=== PATIENT | male | born 1960 | race Caucasian/White ===

== ENCOUNTER 2022-04-16 00:45 | Inpatient (IN) ==
[2022-04-16] MEDS ORDERED: HYDROmorphone INJ 1 MG/ML SYRINGE IV STA (01:29)
[2022-04-16 01:56] LABS: Basophils # (auto) 0.03 K/uL (0-0.2); Basophils % (auto) 0.3 %; Eosinophils # (auto) 0.04 K/uL (0-0.50); Eosinophils % (auto) 0.4 %; Hematocrit (blood only) 50.8 % (40.1-51.0); Hemoglobin 17.7 g/dl (14.0-18.0); Immature Granulocytes # (auto) 0.04 K/uL (0.00-0.02); Immature Granulocytes % (auto) 0.4 %; Lymphocytes # (auto) 2.75 K/uL (1.2-3.4); Lymphocytes % (auto) 25.7 %; Mean Corpuscular Hemoglobin 31.9 pg (25.0-34.0); Mean Corpuscular Hgb Conc 34.8 g/dL (32.0-36.0); Mean Corpuscular Volume 91.5 fL (80.0-100.0); Monocytes # (auto) 0.77 K/uL (0.24-0.82); Monocytes % (auto) 7.2 %; Neutrophils # (auto) 7.06 K/uL (1.4-6.5); Platelet Count 248 K/uL (130-400); RDW Coefficient of Variation 11.8 % (11.5-14.5); RDW Standard Deviation 39.4 fL (36.4-46.3); Red Blood Count 5.55 M/uL (4.63-6.08); White Blood Count 10.69 K/ul (4.8-10.8)
--- NOTE | 2022-04-16 02:00 | Emergency Department Note ---
History of Present Illness General Chief complaint: Back Injury/Pain Stated complaint: HERNIATED DISK L4-L5 LOWER BACK AND LEFT LEG PAIN Time Seen by Provider: 04/16/22 01:09 History of Present Illness Maximum Pain Intensity: 7 This is a 61-year-old male presenting to the emergency department for evaluation of lower back pain and left leg pain for the past several weeks. He rates the d Rivalfox a 02/25. The patient was seen in this facility a few days ago for this complaint where he had MRI performed that did show disc herniation in the lumbar spine. He was evaluated in the ER by Dr. Barger, who was arranging outpatient care. The patient states that his pain is severe again and so he turned to the ER. He did take oxycodone at home which did not help his symptoms. He has not had fevers or chills. Home Medications Medication Instructions Recorded Confirmed Type aspirin 81 mg tablet,delayed 81 mg PO UD 12/26/21 04/16/22 History release cholecalciferol (vitamin D3) 25 25 mcg PO HS 12/26/21 04/16/22 History mcg (1,000 unit) chewable tablet (Vitamin D3) clopidogrel 75 mg tablet (Plavix) 75 mg PO UD 12/26/21 04/16/22 History fexofenadine 180 mg tablet 180 mg PO DAILY PRN SEASONAL 12/26/21 04/16/22 History ALLERGIES fluticasone propionate 50 1 spray intranasal DAILY PRN 12/26/21 04/16/22 History mcg/actuation nasal SEASONAL ALLERGIES spray,suspension (Flonase Allergy Relief) glipizide 2.5 mg tablet, extended 5 mg PO QAM 12/26/21 04/16/22 History release 24 hr hydralazine 25 mg tablet 25 mg PO BID 12/26/21 04/16/22 History hydrochlorothiazide 12.5 mg capsule 12.5 mg PO QAM 12/26/21 04/16/22 History hydrocortisone 2.5 % topical cream 1 applic topical UD PRN PSORIASIS 12/26/21 04/16/22 History magnesium oxide 500 mg capsule 500 mg PO HS 12/26/21 04/16/22 History metoprolol succinate 25 mg 12.5 mg PO QAM 12/26/21 04/16/22 History tablet,extended release 24 hr yuqhtthh-hkt-oeiqt acid 300 1 tab PO QAM 12/26/21 04/16/22 History mcg-lycopene 600 mcg-lutein 300 mcg tablet (Centrum Silver Men) pantoprazole 40 mg tablet,delayed 40 mg PO QAM 12/26/21 04/16/22 History release risperidone 0.5 mg tablet 0.5 mg PO HS 12/26/21 04/16/22 History rosuvastatin 40 mg tablet 40 mg PO QAM 12/26/21 04/16/22 History flash glucose scanning reader 02/21/22 04/16/22 History (FreeStyle Nunu 2 Drury) metformin 500 mg tablet,extended 1,000 mg PO BID 02/21/22 04/16/22 History release 24 hr nitroglycerin 0.4 mg sublingual 0.4 mg sublingual Q5M PRN Chest 02/21/22 04/16/22 History tablet Pain ropinirole 0.5 mg tablet 1.5 mg PO HS 02/21/22 04/16/22 History cyclobenzaprine 10 mg tablet 10 mg PO TID PRN muscle spasm #60 04/09/22 04/16/22 Rx tabs methylprednisolone 4 mg tablet See Rx Instructions .Route 04/09/22 04/16/22 Rx (Medrol) .COMPLEX #18 tabs oxycodone 5 mg tablet 5 mg PO Q6H PRN pain #60 tabs 04/09/22 04/16/22 Rx ramipril 10 mg capsule 10 mg PO BID 04/16/22 04/16/22 History Allergies Allergy/AdvReac Type Severity Reaction Status Date / Time amlodipine Allergy Unknown EDEMA, Verified 04/16/22 02:30 COLDNESS bupropion Allergy Unknown CHEST PAIN Verified 04/16/22 02:30 duloxetine Allergy Unknown PT DOESN'T Verified 04/16/22 02:30 KNOW mirtazapine Allergy Unknown Abdominal Verified 04/16/22 02:30 Pain, ? FURTHER DETAILS ON REACTION - PT NOT SURE tramadol Allergy Unknown INTERFERED Verified 04/16/22 02:30 WITH OTHER MEDICATIONS, PT NOT SURE REACTION atorvastatin AdvReac Unknown MYALGIA Verified 04/16/22 02:30 isosorbide AdvReac Unknown MIGRAINE Verified 04/16/22 02:30 pravastatin AdvReac Unknown MYALGIA Verified 04/16/22 02:30 simvastatin AdvReac Unknown MYALGIA Verified 04/16/22 02:30 Past Med/Surg History Medical History Anxiety Aortic root enlargement 4.4 cm 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 Bipolar disorder CAD (coronary artery disease) NSTEMI 2003-04/11/2004 cath s/p PTCA and stenting of LAD with non drug eluting stent and CHRISTEL to LCx, residual 50-60% stenosis ramus-05/2004 cath patent stents and mild luminal irregularities-08/2019 cath 30% in stent restenoses of proximal LAD, 40% stenosis LAD and 30% stenosis small ramus, follows with [facility] cardio Carotid artery disease < 50% stenosis ICAs bilat on 10/2021 carotid duplex Family history of reaction to anesthesia pt reports father suffering stroke ntkf-hzbewysyiwz-cfbzuuz cause GERD (gastroesophageal reflux disease) Heart failure chronic right sided heart failure per [facility] records, EF 55-59% on 2021 echo Herniated intervertebral disc History of anesthesia reaction HX anxiety with a ciro-operative med - per pt when inquired with staff was advised is no longer used History of colon polyps benign History of COVID-19 08/2021 History of depression History of myocardial infarction 2003 History of pneumonia 07/2021 HTN (hypertension) controlled, stable per pt Hx of chronic sinusitis Hyperlipidemia RLS (restless legs syndrome) Sleep apnea severe, on PAP treatment, follows with [facility] sleep clinic Spinal stenosis Type 2 diabetes mellitus NIDDM Surgical History H/O umbilical hernia repair [facility] History of cardiac cath 2004...[place]...STENTS X2 [facility] History of cardiac cath 2 YRS AGO ASH - NO STENTS THIS TIME (ROBBIN PARIKH) History of colonoscopy History of hemorrhoidectomy > 20 yrs ago History of left knee surgery History of lumbar spinal fusion History of right knee surgery History of tonsillectomy Family History Mother Family history of diabetes mellitus Heart disease Hypertension Breast cancer Father Family history of diabetes mellitus Family history of prostate cancer in father Hypertension Prostate cancer Sister Family history of diabetes mellitus Uncle Myocardial infarction paternal Grandfather (Paternal) Prostate cancer Grandfather (Maternal) Prostate cancer Other Family history of cancer Denies family history of Ovarian cancer Colorectal cancer Social History Smoking Status: Former smoker Tobacco Type: Cigarettes Age Started Using Tobacco: 14; Age Quit Using Tobacco: 31; Second Hand Exposure: No; Hx Alcohol Use: Yes Alcohol type: beer Alcohol type Comment: 10 per week, us ually the weekends Hx Substance Use: Yes Non-Prescribed Medications: Crack / Cocaine and Marijuana Non-Prescribed Medications Comment: years ago cocaine he smokes marijuana every now and then now Last Used Substance: Days (ago) Substance Use Type Other:: MARIJUANA LAST USE A DAY AGO (ADVISED) Preferred Language: [place] Communication Ability: Effective Visual Impairment: Limited Hearing Ability: Hard of Hearing Government Program Manager Required: No Beliefs That Will Affect Care: None marital status: Current Living Situation: Spouse current occupational status: retired How many Children do You have: 2 Feels Safe at Home: Yes Childhood Exposure to Second-Hand Smoke: No Dental Care, Regularly: Yes Assistive Devices: Glasses and Other Review of Systems A total of 10 systems reviewed and were otherwise negative Physical Exam Vital Signs Vital Signs - 24 hr 04/16/22 00:47 04/16/22 01:44 04/16/22 02:00 Temperature 36.7 C Temperature Source Temporal Artery Scan Pulse Rate 123 H 101 H 100 H Pulse Rate from SpO2 Sensor 103 H 103 H Respiratory Rate 22 20 22 Respiratory Effort / Characteristics Non-Labored Spontaneous Respiratory Depth Normal Blood Pressure 208/125 H 185/103 H 158/100 H Blood Pressure Mean 152 130 119 Pulse Oximetry 96 95 93 Oxygen Delivery Method Room Air Sepsis New/Unexplained Change in Mental Status N/A Sepsis Action Taken by Nursing No Action Required 04/16/22 02:30 04/16/22 03:30 04/16/22 04:00 Temperature Temperature Source Pulse Rate 101 H 105 H 104 H Pulse Rate from SpO2 Sensor 102 H 105 H 100 H Respiratory Rate 24 18 Respiratory Effort / Characteristics Respiratory Depth Blood Pressure 170/98 H 156/105 H Blood Pressure Mean 122 122 Pulse Oximetry 93 92 92 Oxygen Delivery Method Sepsis New/Unexplained Change in Mental Status Sepsis Action Taken by Nursing 04/16/22 04:30 04/16/22 05:00 04/16/22 05:30 Temperature Temperature Source Pulse Rate Pulse Rate from SpO2 Sensor 103 H 106 H Respiratory Rate Respiratory Effort / Characteristics Respiratory Depth Blood Pressure 138/99 142/101 H 164/104 H Blood Pressure Mean 112 114 124 Pulse Oximetry 92 92 Oxygen Delivery Method Sepsis New/Unexplained Change in Mental Status Sepsis Action Taken by Nursing 04/16/22 06:30 04/16/22 07:00 04/16/22 07:30 Temperature Temperature Source Pulse Rate 100 H Pulse Rate from SpO2 Sensor Respiratory Rate 20 Respiratory Effort / Characteristics Respiratory Depth Blood Pressure 151/107 H 160/107 H 129/82 Blood Pressure Mean 121 124 97 Pulse Oximetry 95 Oxygen Delivery Method Sepsis New/Unexplained Change in Mental Status Sepsis Action Taken by Nursing VITALS: Vitals are noted on the nurse's note and reviewed by myself. Vital signs stable. GENERAL: Well-developed, well-nourished, white male, who is mildly uncomfortable but nontoxic-appearing. HEAD: Normocephalic atraumatic. NECK: Supple without nuchal rigidity. No lymphadenopathy. No thyromegaly. Cervical spine is nontender. HEART: Regular rate and rhythm without murmurs gallops or rubs. LUNGS: Clear to auscultation bilaterally without wheezes, rales or rhonchi. No retractions or accessory muscle use. BACK: Tenderness of the lumbar spine and left SI joint. No saddle paresthesias. Positive left leg MUSCULOSKELETAL: No muscle atrophy, erythema, or edema noted. Full range of motion in all extremities. No tenderness to palpation. Normal gait. Strength 5/5 throughout. NEURO: Patient was alert and oriented to person place and time. CN II through XII grossly intact. No focal neurological deficits. Course Administered Medications Discontinued Medications Hydromorphone HCl (Hydromorphone Inj 1 Mg/Ml Syringe) 1 mg IV NOW STA Stop: 04/16/22 01:30 Last Admin: 04/16/22 02:58 Dose: 1 mg Documented By: LESIA Medical Decision Making Differential Diagnosis Differential diagnosis: Etiologies such as muscular strain, fracture, metastatic disease, disc herniation, sciatica, epidural abscess, vertebral osteomyelitis, discitis, spinal epidural hematoma, cord compression, cauda equina/conus medullaris syndrome, aortic disease, infection, shingles, renal colic UTI/pyelonephritis, gastrointestinal, acute exacerbation of chronic back pain, as well as others were entertained. Laboratory Data Result diagrams: 04/16/22 01:12 04/16/22 01:12 Lab Results 04/16/22 04/16/22 04/16/22 Range/Units 01:12 01:12 01:15 WBC 10.69 (4.8-10.8) K/ul RBC 5.55 (4.63-6.08) M/uL Hgb 17.7 (14.0-18.0) g/dl Hct 50.8 (40.1-51.0) % MCV 91.5 (80.0-100.0) fL MCH 31.9 (25.0-34.0) pg MCHC 34.8 (32.0-36.0) g/dL RDW Std Deviation 39.4 (36.4-46.3) fL RDW Coeff of Carmelina 11.8 (11.5-14.5) % Plt Count 248 (130-400) K/uL MPV 10.0 (9.4-12.4) fL Immature Gran % (Auto) 0.4 % Neut % (Auto) 66.0 % Lymph % (Auto) 25.7 % [place] % (Auto) 7.2 % Eos % (Auto) 0.4 % Baso % (Auto) 0.3 % Neut # (Auto) 7.06 H (1.4-6.5) K/uL Lymph # (Auto) 2.75 (1.2-3.4) K/uL [place] # (Auto) 0.77 (0.24-0.82) K/uL Eos # (Auto) 0.04 (0-0.50) K/uL Baso # (Auto) 0.03 (0-0.2) K/uL Immature Gran # (Auto) 0.04 H (0.00-0.02) K/uL Sodium 140 (136-145) mmol/L Potassium 4.0 (3.5-5.1) mmol/L Chloride 102 (98-107) mmol/L Carbon Dioxide 26 (21-32) mmol/L Anion Gap 12 H (3-11) BUN 19 (6-23) mg/dl Creatinine 1.19 (0.6-1.4) mg/dl Est Cr Clr Drug Dosing 90.3 ml/min Est GFR ( Amer) 74.9 ml/min Est GFR (Non-Af Amer) 64.6 ml/min BUN/Creatinine Ratio 16.0 (10-20) Glucose 125 H (70-99(Fasting)) mg/dl Calcium 10.4 H (8.5-10.1) mg/dl Total Bilirubin 0.7 (0.2-1.0) mg/dl AST 32 (13-39) U/L ALT 54 H (7-52) U/L Alkaline Phosphatase 60 (34-104) U/L Total Protein 8.7 H (6.0-8.3) gm/dl Albumin 5.4 H (3.4-5.0) gm/dl Globulin 3.3 (2.5-4.0) gm/dl Albumin/Globulin Ratio 1.6 (0.9-2) SARS-CoV-2, RNA, NAAT NEGATIVE (NEGATIVE) MDM Narrative Physical exam and history were performed. Nursing notes, EMR, and Medication List were personally reviewed. Patient appears to have back pain bringing him back to the emergency department. The patient rates his pain at a very high level. He did have MRI performed just a few days ago. Because of the patient's symptoms I did reach out orthospine, Dr. Barger. The patient will be given IV Dilaudid for pain control. Dr. Barger will admit the patient for further evaluation and likely surgical intervention. Please see Dr. Barger's dictation for further patient course, plan, disposition. The chart was completed utilizing [employer] Speech Voice Recognition Software. Grammatical errors, random word insertions, pronoun errors, and incomplete sentences are an occasional consequence of this system due to software elena itations, ambient noise, and hardware issues. Any formal questions or concerns about the content, text, or information contained within the body of this dictation should be directly addressed to the provider for clarification. . Impression & Plan Lumbar disc disease with radiculopathy Discharge Plan Visit Data Chief Complaint: Back Injury/Pain Stated Complaint: HERNIATED DISK L4-L5 LOWER BACK AND LEFT LEG PAIN ED Provider: Yunior Marie ED Midlevel Provider: Noel Prado Discharge Problem: Lumbar disc disease with radiculopathy Forms Stand Alone Forms: My [facility] [employer] Prescriptions Prescriptions: No Action (DME) FreeStyle Nunu 2 Drury Misc See Rx Instructions .ROUTE Rx Instructions: As directed nitroglycerin 0.4 mg tablet, sublingual 0.4 mg sublingual Q5M PRN (Reason: Chest Pain) Rx Instructions: do not exceed 3 doses per episode cyclobenzaprine 10 mg tablet 10 mg PO TID PRN (Reason: muscle spasm) Qty: 60 1RF oxycodone 5 mg tablet 5 mg PO Q6H PRN (Reason: pain) Qty: 60 0RF methylprednisolone [Medrol] 4 mg tablet See Rx Instructions .Route .COMPLEX Qty: 18 0RF Rx Instructions: 1 po bid x 3 days then 1 po am 1/2 po pm x 4 days then 1/2 po bid x 4 days then 1/2 po daily x 4 days then DC; hydralazine 25 mg Tablet 25 mg PO BID clopidogrel [Plavix] 75 mg Tablet 75 mg PO UD Rx Instructions: ordered every morning but currently on hold for surgery fexofenadine 180 mg Tablet 180 mg PO DAILY PRN (Reason: SEASONAL ALLERGIES) glipizide 2.5 mg Tablet Extended Release 24 Hr 5 mg PO QAM pantoprazole 40 mg Tablet,Delayed Release (Dr/Ec) 40 mg PO QAM Label Comments: SOMETIMES DAILY, SOMETIMES EVERY OTHER DAY hydrochlorothiazide 12.5 mg Capsule 12.5 mg PO QAM metoprolol succinate 25 mg Tablet Extended Release 24 Hr 12.5 mg PO QAM fluticasone propionate [Flonase Allergy Relief] 50 mcg/actuation [place],Suspension 1 spray INTRANASAL DAILY PRN (Reason: SEASONAL ALLERGIES) risperidone 0.5 mg Tablet 0.5 mg PO HS rosuvastatin 40 mg Tablet 40 mg PO QAM aspirin [Aspir-81] 81 mg Tablet,Delayed Release (Dr/Ec) 81 mg PO UD Rx Instructions: curently on hold for surgery hydrocortisone 2.5 % Cream 1 applic TOPICAL UD PRN (Reason: PSORIASIS ) magnesium oxide 500 mg Capsule 500 mg PO HS cholecalciferol (vitamin D3) [Vitamin D3] 25 mcg (1,000 unit) Tablet,Chewable 25 mcg PO HS Centrum Silver Men 300-600-300 mcg Tablet 1 tab PO QAM ropinirole 0.5 mg tablet 1.5 mg PO HS Rx Instructions: 3 tablet dose metformin 500 mg tablet extended release 24 hr 1,000 mg PO BID Label Comments: 2 AFTER BREAKFAST AND 2 AFTER SUPPER ramipril 10 mg Capsule 10 mg PO BID Referrals Referrals: Jon Crockett MD [Primary Care Provider] -
[2022-04-16 02:19] LABS: Albumin Globulin Ratio 1.6 (0.9-2); Albumin Level 5.4 gm/dl (3.4-5.0); Bilirubin,Total 0.7 mg/dl (0.2-1.0); Calcium 10.4 mg/dl (8.5-10.1); Creatinine Clr Calc Pharmacy 90.3 ml/min; Est GFR (African American) 74.9 ml/min; Est GFR (Non-African American) 64.6 ml/min; Globulin 3.3 gm/dl (2.5-4.0); Total Protein 8.7 gm/dl (6.0-8.3)
--- NOTE | 2022-04-16 08:00 | History & Physical Report ---
Date of Service April 16, 2022 Assessment & Plan (1) Herniation of left side of L4-L5 intervertebral disc: Plan: Assessment L4-5 disc herniation on the left with radiculopathy. Plan at this time the patient is failed extensive course of nonoperative care continues to demonstrate progressive neuro deficit with severe pain in recommending surgical invention. Would require a lumbar decompression discectomy at L4-5 with possible fusion L4-L5. The decompression required to adequately address the disc at L4-5 could create iatrogenic instability. This is of considerable concern in light of the previous fusion at L5-S1 and adjacent level instability. Subsequently he may require fusion at L4-5 as well. Risk-benefit pros cons alternatives were outlined in detail. Patient stands agrees. He is n.p.o. we will plan for surgery soon as possible. History of Present Illness Chief Complaint: Left leg pain Primary Care Provider: Jon Crockett MD This is a 61-year-old male well-known to me the presents to the emergency room early this morning with continued incapacitating left leg pain. I did see him a few days earlier and we tried to manage him with medical management. He is undergone extensive course of medication care manager and various pain medications as well as steroids without resolution. He continues to note significant strength deficit involving left lower extremity limitations with ambulation. The right lower extremity is asymptomatic. He is no longer able to handle of the significant pain. Allergies Allergy/AdvReac Type Severity Reaction Status Date / Time amlodipine Allergy Unknown EDEMA, Verified 04/16/22 02:30 COLDNESS bupropion Allergy Unknown CHEST PAIN Verified 04/16/22 02:30 duloxetine Allergy Unknown PT DOESN'T Verified 04/16/22 02:30 KNOW mirtazapine Allergy Unknown Abdominal Verified 04/16/22 02:30 Pain, ? FURTHER DETAILS ON REACTION - PT NOT SURE tramadol Allergy Unknown INTERFERED Verified 04/16/22 02:30 WITH OTHER MEDICATIONS, PT NOT SURE REACTION atorvastatin AdvReac Unknown MYALGIA Verified 04/16/22 02:30 isosorbide AdvReac Unknown MIGRAINE Verified 04/16/22 02:30 pravastatin AdvReac Unknown MYALGIA Verified 04/16/22 02:30 simvastatin AdvReac Unknown MYALGIA Verified 04/16/22 02:30 Home Medications Medication Instructions Recorded Confirmed Type aspirin 81 mg tablet,delayed 81 mg PO UD 12/26/21 04/16/22 History release cholecalciferol (vitamin D3) 25 25 mcg PO HS 12/26/21 04/16/22 History mcg (1,000 unit) chewable tablet (Vitamin D3) clopidogrel 75 mg tablet (Plavix) 75 mg PO UD 12/26/21 04/16/22 History fexofenadine 180 mg tablet 180 mg PO DAILY PRN SEASONAL 12/26/21 04/16/22 History ALLERGIES fluticasone propionate 50 1 spray intranasal DAILY PRN 12/26/21 04/16/22 History mcg/actuation nasal SEASONAL ALLERGIES spray,suspension (Flonase Allergy Relief) glipizide 2.5 mg tablet, extended 5 mg PO QAM 12/26/21 04/16/22 History release 24 hr hydralazine 25 mg tablet 25 mg PO BID 12/26/21 04/16/22 History hydrochlorothiazide 12.5 mg capsule 12.5 mg PO QAM 12/26/21 04/16/22 History hydrocortisone 2.5 % topical cream 1 applic topical UD PRN PSORIASIS 12/26/21 04/16/22 History magnesium oxide 500 mg capsule 500 mg PO HS 12/26/21 04/16/22 History metoprolol succinate 25 mg 12.5 mg PO QAM 12/26/21 04/16/22 History tablet,extended release 24 hr xauesmsm-bdz-wdkpo acid 300 1 tab PO QAM 12/26/21 04/16/22 History mcg-lycopene 600 mcg-lutein 300 mcg tablet (Centrum Silver Men) pantoprazole 40 mg tablet,delayed 40 mg PO QAM 12/26/21 04/16/22 History release risperidone 0.5 mg tablet 0.5 mg PO HS 12/26/21 04/16/22 History rosuvastatin 40 mg tablet 40 mg PO QAM 12/26/21 04/16/22 History flash glucose scanning reader 02/21/22 04/16/22 History (FreeStyle [place]) metformin 500 mg tablet,extended 1,000 mg PO BID 02/21/22 04/16/22 History release 24 hr nitroglycerin 0.4 mg sublingual 0.4 mg sublingual Q5M PRN Chest 02/21/22 04/16/22 History tablet Pain ropinirole 0.5 mg tablet 1.5 mg PO HS 02/21/22 04/16/22 History cyclobenzaprine 10 mg tablet 10 mg PO TID PRN muscle spasm #60 04/09/22 04/16/22 Rx tabs methylprednisolone 4 mg tablet See Rx Instructions .Route 04/09/22 04/16/22 Rx (Medrol) .COMPLEX #18 tabs oxycodone 5 mg tablet 5 mg PO Q6H PRN pain #60 tabs 04/09/22 04/16/22 Rx ramipril 10 mg capsule 10 mg PO BID 04/16/22 04/16/22 History Past Med/Surg History Medical History Anxiety Aortic root enlargement 4.4 cm 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 Bipolar disorder CAD (coronary artery disease) NSTEMI 2003-04/11/2004 cath s/p PTCA and stenting of LAD with non drug eluting stent and CHRISTEL to LCx, residual 50-60% stenosis ramus-05/2004 cath patent stents and mild luminal irregularities-08/2019 cath 30% in stent restenoses of proximal LAD, 40% stenosis LAD and 30% stenosis small ramus, follows with [facility] cardio Carotid artery disease < 50% stenosis ICAs bilat on 10/2021 carotid duplex Family history of reaction to anesthesia pt reports father suffering stroke [id number]-[id number]-qtqhtht cause GERD (gastroesophageal reflux disease) Heart failure chronic right sided heart failure per [facility] records, EF 55-59% on 2021 echo Herniated intervertebral disc History of anesthesia reaction HX anxiety with a ciro-operative med - per pt when inquired with staff was advised is no longer used History of colon polyps benign History of COVID-19 08/2021 History of depression History of myocardial infarction 2003 History of pneumonia 07/2021 HTN (hypertension) controlled, stable per pt Hx of chronic sinusitis Hyperlipidemia RLS (restless legs syndrome) Sleep apnea severe, on PAP treatment, follows with [facility] sleep clinic Spinal stenosis Type 2 diabetes mellitus NIDDM Surgical History H/O umbilical hernia repair [facility] History of cardiac cath 2004...[place]...STENTS X2 [facility] History of cardiac cath 2 YRS AGO ASH - NO STENTS THIS TIME (ROBBIN PARIKH) History of colonoscopy History of hemorrhoidectomy > 20 yrs ago History of left knee surgery History of lumbar spinal fusion History of right knee surgery History of tonsillectomy Family History Mother Family history of diabetes mellitus Heart disease Hypertension Breast cancer Father Family history of diabetes mellitus Family history of prostate cancer in father Hypertension Prostate cancer Sister Family history of diabetes mellitus Uncle Myocardial infarction paternal Grandfather (Paternal) Prostate cancer Grandfather (Maternal) Prostate cancer Other Family history of cancer Denies family history of Ovarian cancer Colorectal cancer Social History Smoking Status: Former smoker Tobacco Type: Cigarettes Age Started Using Tobacco: 14; Age Quit Using Tobacco: 31; Second Hand Exposure: No; Hx Alcohol Use: Yes Alcohol type: beer Alcohol type Comment: 10 per week, usually the weekends Hx Substance Use: Yes Non-Prescribed Medications: Crack / Cocaine and Marijuana Non-Prescribed Medications Comment: years ago cocaine he smokes marijuana every now and then now Last Used Substance: Days (ago) Substance Use Type Other:: MARIJUANA LAST USE A DAY AGO (ADVISED) Preferred Language: Polish Communication Ability: Effective Visual Impairment: Limited Hearing Ability: Hard of Hearing Field Automobile Adjuster Required: No Beliefs That Will Affect Care: None marital status: Current Living Situation: Spouse current occupational status: retired How many Children do You have: 2 Feels Safe at Home: Yes Childhood Exposure to Second-Hand Smoke: No Dental Care, Regularly: Yes Assistive Devices: Glasses and Other Physical Exam Physical Exam: On exam is in obvious distress. He continues to demonstrate strength deficit to the left quad 4-/5 with a 4/5 left dorsiflexion and marked sensory deficits. He has significant tension signs straight leg raising on the left. The right lower extremity is asymptomatic with excellent strength testing. DTR reflexes are diminished. Results & Data Results & Data ([facility]) Vital Signs (Past 12 Hours) Vital Signs Temp Pulse Resp BP Pulse Ox O2 Del Method 04/16/22 07:30 129/82 04/16/22 07:00 100 H 20 160/107 H 95 04/16/22 06:30 151/107 H 04/16/22 05:30 164/104 H 04/16/22 05:00 142/101 H 92 04/16/22 04:30 138/99 92 04/16/22 04:00 104 H 92 04/16/22 03:30 105 H 18 156/105 H 92 04/16/22 02:30 101 H 24 170/98 H 93 04/16/22 02:00 100 H 22 158/100 H 93 04/16/22 01:44 101 H 20 185/103 H 95 04/16/22 00:47 36.7 C 123 H 22 208/125 H 96 Room Air Code Status & VTE Plan VTE Prophylaxis Plan VTE Prophylaxis will be ordered: Yes
[2022-04-16] MEDS ORDERED: LORazepam 0.5 MG TAB PO PRN ×2 (09:16→16:32)
[2022-04-16] MEDS ORDERED: ONDANSETRON INJ 2 MG/ML 2 ML VIAL IV PRN ×3 (09:16→16:32)
[2022-04-16] MEDS ORDERED: HYDROmorphone INJ 0.5 MG/0.5 ML SYR IV PRN ×2 (09:16→16:32)
[2022-04-16] MEDS ORDERED: ONDANSETRON 4 MG OD TAB PO PRN ×2 (09:16→16:32)
[2022-04-16] MEDS ORDERED: ACETAMINOPHEN 500 MG TAB PO PRN (09:16)
[2022-04-16] MEDS ORDERED: PROMETHAZINE HCL 12.5 MG in SODIUM CHLORIDE 0.9% 50 ML IV PRN ×2 (09:16→16:32)
[2022-04-16] MEDS ORDERED: ceFAZolin 2000MG 2,000 MG/15 ML SYR IV SCH (09:16)
[2022-04-16] MEDS ORDERED: ACETAMINOPHEN 1,000 MG/100 ML VIAL IV PRN ×2 (09:16→16:32)
[2022-04-16] MEDS ORDERED: glipiZIDE ER 2.5 MG TABCR PO SCH (09:16)
[2022-04-16] MEDS ORDERED: SODIUM CHLORIDE 0.9% 1000ML 1,000 ML IV SCH (09:16)
[2022-04-16] MEDS ORDERED: LORazepam 0.5 MG in SYRINGE 0.25 ML IV PRN ×2 (09:16→16:32)
[2022-04-16] MEDS ORDERED: oxyCODONE HCL IR 5 MG TAB (IMMEDIATE RELEASE) PO PRN (09:16)
[2022-04-16] MEDS ORDERED: NALOXONE HCL 0.4 MG/1 ML VIAL/CARP IV PRN ×2 (09:16→16:32)
[2022-04-16] MEDS ORDERED: HYDROmorphone INJ 1 MG/ML SYRINGE IV PRN ×2 (09:16→16:32)
[2022-04-16] MEDS ORDERED: PHARMACY GLYCEMIC MGMT CONSULT PRN ×2 (09:16→16:32)
[2022-04-16] MEDS ORDERED: METOCLOPRAMIDE HCL INJ 5 MG/ML 2 ML VIAL IV PRN ×2 (09:16→16:32)
[2022-04-16] MEDS ORDERED: NITROGLYCERIN SL 0.4 MG/TAB TAB SL PRN (09:16)
[2022-04-16] MEDS ORDERED: MAGNESIUM HYDROXIDE SUSP 30 ML UDC PO PRN (09:16)
--- NOTE | 2022-04-16 09:38 | Anesthesiology Consultation ---
Date of Service April 16, 2022 Assessment & Plan (1) Encounter for pre-operative examination: Chart Review Chart Review: entry specialist initiated History Surgery Operation Date: 04/16/22 08:10 Proposed Procedures p L4-L5 Decompression Possible L4-L5 Decompression - Quinten Barger DO Height/Weight Height: 6 ft 4 in Weight: 121 kg Allergies Allergy/AdvReac Type Severity Reaction Status Date / Time amlodipine Allergy Unknown EDEMA, Verified 04/16/22 02:30 COLDNESS bupropion Allergy Unknown CHEST PAIN Verified 04/16/22 02:30 duloxetine Allergy Unknown PT DOESN'T Verified 04/16/22 02:30 KNOW mirtazapine Allergy Unknown Abdominal Verified 04/16/22 02:30 Pain, ? FURTHER DETAILS ON REACTION - PT NOT SURE tramadol Allergy Unknown INTERFERED Verified 04/16/22 02:30 WITH OTHER MEDICATIONS, PT NOT SURE REACTION atorvastatin AdvReac Unknown MYALGIA Verified 04/16/22 02:30 isosorbide AdvReac Unknown MIGRAINE Verified 04/16/22 02:30 pravastatin AdvReac Unknown MYALGIA Verified 04/16/22 02:30 simvastatin AdvReac Unknown MYALGIA Verified 04/16/22 02:30 Medications Home Medications Medication Instructions Recorded Confirmed Last Taken aspirin 81 mg tablet,delayed 81 mg PO UD 12/26/21 04/16/22 04/02/22 release cholecalciferol (vitamin D3) 25 25 mcg PO HS 12/26/21 04/16/22 04/02/22 mcg (1,000 unit) chewable tablet (Vitamin D3) clopidogrel 75 mg tablet (Plavix) 75 mg PO UD 12/26/21 04/16/22 04/11/22 fexofenadine 180 mg tablet 180 mg PO DAILY PRN SEASONAL 12/26/21 04/16/22 Unknown ALLERGIES fluticasone propionate 50 1 spray intranasal DAILY PRN 12/26/21 04/16/22 Unknown mcg/actuation nasal SEASONAL ALLERGIES spray,suspension (Flonase Allergy Relief) glipizide 2.5 mg tablet, extended 5 mg PO QAM 12/26/21 04/16/22 04/15/22 10:00 release 24 hr hydralazine 25 mg tablet 25 mg PO BID 12/26/21 04/16/22 04/15/22 23:30 hydrochlorothiazide 12.5 mg capsule 12.5 mg PO QAM 12/26/21 04/16/22 04/15/22 10:00 hydrocortisone 2.5 % topical cream 1 applic topical UD PRN PSORIASIS 12/26/21 04/16/22 Unknown magnesium oxide 500 mg capsule 500 mg PO 12/26/21 04/16/22 04/15/22 23:30 metoprolol succinate 25 mg 12.5 mg PO QA 12/26/21 04/16/22 04/15/22 10:00 tablet,extended release 24 hr cyvwgxwr-bby-sbbhn acid 300 1 tab PO QAM 12/26/21 04/16/22 04/15/22 10:00 mcg-lycopene 600 mcg-lutein 300 mcg tablet (Centrum Silver Men) pantoprazole 40 mg tablet,delayed 40 mg PO [facility] 12/26/21 04/16/22 04/15/22 10:00 release risperidone 0.5 mg tablet 0.5 mg PO 12/26/21 04/16/22 04/15/22 23:30 rosuvastatin 40 mg tablet 40 mg PO [facility] 12/26/21 04/16/22 04/14/22 pm flash glucose scanning reader 02/21/22 04/16/22 Unknown ([employer]) metformin 500 mg tablet,extended 1,000 mg PO BID 02/21/22 04/16/22 04/15/22 17:30 release 24 hr nitroglycerin 0.4 mg sublingual 0.4 mg sublingual Q5M PRN Chest 02/21/22 04/16/22 Unknown tablet Pain ropinirole 0.5 mg tablet 1.5 mg PO 02/21/22 04/16/22 04/15/22 23:30 cyclobenzaprine 10 mg tablet 10 mg PO TID PRN muscle spasm #60 04/09/22 04/16/22 04/15/22 tabs methylprednisolone 4 mg tablet See Rx Instructions .Route 04/09/22 04/16/22 04/15/22 12:00 (Medrol) .COMPLEX #18 tabs 12 mg oxycodone 5 mg tablet 5 mg PO Q6H PRN pain #60 tabs 04/09/22 04/16/22 04/15/22 23:30 ramipril 10 mg capsule 10 mg PO BID 04/16/22 04/16/2204/15/22 23:30 Active Medications Generic Name Dose Route Start Last Admin Trade Name Rashaun PRN Reason Stop Dose Admin Acetaminophen 1,000 mg in 100 mls @ 400 mls/hr 04/16/22 09:16 04/16/22 09:49 Ofirmev IV 04/17/22 09:17 400 mls/hr Q8H PRN Administration Pain Rating 1-3 & Pre PT Lorazepam 0.5 mg 04/16/22 09:16 04/16/22 09:49 Lorazepam 0.5 Mg Tab PO 05/16/22 09:15 0.5 mg Q8H PRN Administration sedation/anxiety Past Medical History Medical History Anxiety Aortic root enlargement 4.4 cm 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 Bipolar disorder CAD (coronary artery disease) NSTEMI 2003-04/11/2004 cath s/p PTCA and stenting of LAD with non drug eluting stent and CHRISTEL to LCx, residual 50-60% stenosis ramus-05/2004 cath patent stents and mild luminal irregularities-08/2019 cath 30% in stent restenoses of proximal LAD, 40% stenosis LAD and 30% stenosis small ramus, follows with [facility] cardio Carotid artery disease < 50% stenosis ICAs bilat on 10/2021 carotid duplex Family history of reaction to anesthesia pt reports father suffering stroke [id number] cause GERD (gastroesophageal reflux disease) Heart failure chronic right sided heart failure per [facility] records, EF 55-59% on 2021 echo Herniated intervertebral disc History of anesthesia reaction HX anxiety with a ciro-operative med - per pt when inquired with staff was advised is no longer used History of colon polyps benign History of COVID-19 08/2021 History of depression History of myocardial infarction 2003 History of pneumonia 07/2021 HTN (hypertension) controlled, stable per pt Hx of chronic sinusitis Hyperlipidemia RLS (restless legs syndrome) Sleep apnea severe, on PAP treatment, follows with [facility] sleep clinic Spinal stenosis Type 2 diabetes mellitus NIDDM Past Family History Family History Mother Family history of diabetes mellitus Heart disease Hypertension Breast cancer Father Family history of diabetes mellitus Family history of prostate cancer in father Hypertension Prostate cancer Sister Family history of diabetes mellitus Uncle Myocardial infarction paternal Grandfather (Paternal) Prostate cancer Grandfather (Maternal) Prostate cancer Other Family history of cancer Denies family history of Ovarian cancer Colorectal cancer Past Surgical History Surgical History H/O umbilical hernia repair [facility] History of cardiac cath [place]ST[place]2 [facility] History of cardiac cath 2 YRS AGO [facility] - NO STENTS THIS TIME ([facility]) History of colonoscopy History of hemorrhoidectomy > 20 yrs ago History of left knee surgery History of lumbar spinal fusion History of right knee surgery History of tonsillectomy Social History Smoking Status: Former smoker tobacco type: cigarettes and pipe Hx Alcohol Use: Yes Alcohol type: beer alcohol intake frequency: other Hx Substance Use: Yes substance use type: marijuana Substance Use Type Other:: MARIJUANA LAST USE A DAY AGO (ADVISED) Last Used Substance: Days (ago) Physical Exam Vital Signs Last Vital Signs Temp 98.1 F 04/16/22 00:47 Pulse 100 H 04/16/22 07:00 Resp 20 04/16/22 07:00 BP 129/82 04/16/22 07:30 Pulse Ox 95 04/16/22 07:00 O2 Del Method 04/16/22 00:47 Testing Laboratory Results 04/16/22 01:12 04/16/22 01:12 Electrocardiogram Date: 04/16/22 Sinus tachycardia, rate 104 bpm Possible Left atrial enlargement Inferior infarct , age undetermined Anterolateral infarct , age undetermined Abnormal ECG When compared with ECG of 19-JUL-2008 14:56, Vent. rate has increased BY 57 BPM Inferior infarct is now Present Chest X-Ray Date: 12/28/21 Findings: + NAD Echocardiogram Date: 11/06/21 EF 55-59% LV wall thickness is moderately increased RV systolic function is moderately reduced RV cavity is moderately dilated LV diastolic function is mildly abnormal No pericardial effusion is noted The proximal ascending thoracic aorta is moderately enlarged 4.4
[2022-04-16] MEDS ORDERED: hydroCHLOROthiazide 25 MG TAB PO SCH (10:30)
[2022-04-16] MEDS ORDERED: GLUCOSE 40% GEL 15 GM TUBE PO PRN (10:45)
[2022-04-16] MEDS ORDERED: GLUCAGON FOR INJ 1 MG VIAL IM PRN (10:45)
[2022-04-16] MEDS ORDERED: CARBOHYDRATES FOR HYPOGLYCEMIA PO PRN (10:45)
[2022-04-16] MEDS ORDERED: GLUCOSE 10 TAB/TUBE PO PRN (10:45)
[2022-04-16] MEDS ORDERED: DEXTROSE 50% 50 ML SYRINGE IV PRN (10:45)
--- NOTE | 2022-04-16 10:51 | Hospitalist Consultation ---
Date of Consultation April 16, 2022 Assessment & Plan (1) Herniation of left side of L4-L5 intervertebral disc: With intractable pain and left lower extremity lumbar radiculopathy Admitted by orthopedic spine surgeon and plans for lumbar surgery today Postoperative pain management, bowel regimen, activity, and drain management as per orthopedic surgery Avoid use of NSAIDs given history of CAD -Follow postoperative CBC, BMP in the morning Medically optimized to proceed with this intermediate risk surgery from a cardiovascular standpoint (2) Lumbar radiculopathy: As above (3) CAD (coronary artery disease): With history of NSTEMI 03/2004 s/p nondrug-eluting stent to the LAD and to CHRISTEL to the LCx. Has had 2 more cardiac catheterization since then in 05/2004 and again 08/2019, both revealing nonobstructive CAD without further intervention. No active symptoms ECG here with inferior and anterolateral infarct with inferior infarct be new from previous, however does not seem to have active symptoms Held his Plavix for the last several days due to upcoming procedure Continue aspirin, enalapril, metoprolol, rosuvastatin Was seen by his ross furnace operator several months ago for preoperative clearance and was medically optimized at that time (4) HTN (hypertension): Blood pressures been elevated secondary to pain at this point and likely recent steroid use Continue home enalapril, metoprolol, hydralazine, but hold p.o. HCTZ while on IV fluids and while n.p.o. Monitor BPs Restart HCTZ in the morning if BPs not low and renal function stable (5) Diabetes mellitus: Pharmacy is consulted Most recent hemoglobin A1c well controlled 6.8% Continue Lantus and NovoLog Diabetic diet when eating Holding home metformin and glipizide (6) RLS (restless legs syndrome): Stable, continue home ropinirole (7) Hyperlipidemia: Continue statin (8) Bipolar disorder: Stable Continue home risperidone at bedtime (9) Sleep apnea: Continue CPAP at night-placed order to bring in from home (10) Ascending aorta enlargement: Moderately large 4.4 cm Needs continued blood pressure control Monitor as an outpatient (11) Heart failure: Right sided and chronic HFpEF no evidence of volume overload holding HCTZ and giving fluids perioperatively monitor volume status and restart HCTZ when able to Murmur on exam is chronic as per review of Cardio notes and ECHO 11/2021 with preserved EF, no significant valvular disease (12) GERD (gastroesophageal reflux disease): continue PPI Plan DVT prophylaxis-CLIFFORD hose, SCDs, avoid chemical anticoagulation due to spine surgery Disposition-hospital service will follow along History of Present Illness Reason for Consultation: Medical management Requesting Physician: Dr. Barger Attending Physician: Quinten Barger, DO History of Present Illness This pt is a 61-year-old male with a history of HTN, DM2, RLS, hyperlipidemia, CAD status post stenting times 09/2003, right-sided heart failure, chronic HFpEF, moderately enlarged proximal ascending thoracic aorta, bipolar disorder, mild bilateral ALAN, GERD, depression/anxiety, NATALY on CPAP, and lumbar spinal stenosis, who presents to the ER for the second time in the last week with debilitating left lumbar radiculopathy symptoms. He was seen by orthopedic spine surgery in 04/13 and attempts were made with medical management, but he returns today with incapacitating pain and inability to ambulate. The hospital service was consulted for medical management. He follows with [facility] cardiology on a regular basis and was noted to have stable CAD at last visit as per notes on 12/06/2021. No ongoing angina. Allergies Allergy/AdvReac Type Severity Reaction Status Date / Time amlodipine Allergy Unknown EDEMA, Verified 04/16/22 02:30 COLDNESS bupropion Allergy Unknown CHEST PAIN Verified 04/16/22 02:30 duloxetine Allergy Unknown PT DOESN'T Verified 04/16/22 02:30 KNOW mirtazapine Allergy Unknown Abdominal Verified 04/16/22 02:30 Pain, ? FURTHER DETAILS ON REACTION - PT NOT SURE tramadol Allergy Unknown INTERFERED Verified 04/16/22 02:30 WITH OTHER MEDICATIONS, PT NOT SURE REACTION atorvastatin AdvReac Unknown MYALGIA Verified 04/16/22 02:30 isosorbide AdvReac Unknown MIGRAINE Verified 04/16/22 02:30 pravastatin AdvReac Unknown MYALGIA Verified 04/16/22 02:30 simvastatin AdvReac Unknown MYALGIA Verified 04/16/22 02:30 Home Medications Medication Instructions Recorded Confirmed Type aspirin 81 mg tablet,delayed 81 mg PO UD 12/26/21 04/16/22 History release cholecalciferol (vitamin D3) 25 25 mcg PO HS 12/26/21 04/16/22 History mcg (1,000 unit) chewable tablet (Vitamin D3) clopidogrel 75 mg tablet (Plavix) 75 mg PO UD 12/26/21 04/16/22 History fexofenadine 180 mg tablet 180 mg PO DAILY PRN SEASONAL 12/26/21 04/16/22 History ALLERGIES fluticasone propionate 50 1 spray intranasal DAILY PRN 12/26/21 04/16/22 History mcg/actuation nasal SEASONAL ALLERGIES spray,suspension (Flonase Allergy Relief) glipizide 2.5 mg tablet, extended 5 mg PO QAM 12/26/21 04/16/22 History release 24 hr hydralazine 25 mg tablet 25 mg PO BID 12/26/21 04/16/22 History hydrochlorothiazide 12.5 mg capsule 12.5 mg PO QAM 12/26/21 04/16/22 History hydrocortisone 2.5 % topical cream 1 applic topical UD PRN PSORIASIS 12/26/21 04/16/22 History magnesium oxide 500 mg capsule 500 mg PO HS 12/26/21 04/16/22 History metoprolol succinate 25 mg 12.5 mg PO QAM 12/26/21 04/16/22 History tablet,extended release 24 hr zkbnbjyc-scu-htngj acid 300 1 tab PO QAM 12/26/21 04/16/22 History mcg-lycopene 600 mcg-lutein 300 mcg tablet (Centrum Silver Men) pantoprazole 40 mg tablet,delayed 40 mg PO QAM 12/26/21 04/16/22 History release risperidone 0.5 mg tablet 0.5 mg PO HS 12/26/21 04/16/22 History rosuvastatin 40 mg tablet 40 mg PO QAM 12/26/21 04/16/22 History flash glucose scanning reader 02/21/22 04/16/22 History (FreeStyle Nunu 2 Collins) metformin 500 mg tablet,extended 1,000 mg PO BID 02/21/22 04/16/22 History release 24 hr nitroglycerin 0.4 mg sublingual 0.4 mg sublingual Q5M PRN Chest 02/21/22 04/16/22 History tablet Pain ropinirole 0.5 mg tablet 1.5 mg PO HS 02/21/22 04/16/22 History cyclobenzaprine 10 mg tablet 10 mg PO TID PRN muscle spasm #60 04/09/22 04/16/22 Rx tabs methylprednisolone 4 mg tablet See Rx Instructions .Route 04/09/22 04/16/22 Rx (Medrol) .COMPLEX #18 tabs oxycodone 5 mg tablet 5 mg PO Q6H PRN pain #60 tabs 04/09/22 04/16/22 Rx ramipril 10 mg capsule 10 mg PO BID 04/16/22 04/16/22 History Patient History Medical History (Updated 04/16/22 @ 22:20 by Michaela Jain MD) Anxiety Aortic root enlargement 4.4 cm 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 Bipolar disorder CAD (coronary artery disease) NSTEMI 2003-04/11/2004 cath s/p PTCA and stenting of LAD with non drug eluting stent and CHRISTEL to LCx, residual 50-60% stenosis ramus-05/2004 cath patent stents and mild luminal irregularities-08/2019 cath 30% in stent restenoses of proximal LAD, 40% stenosis LAD and 30% stenosis small ramus, follows with [facility] [place] cardio Carotid artery disease < 50% stenosis ICAs bilat on 10/2021 carotid duplex Family history of reaction to anesthesia pt reports father suffering stroke cbxb-cucsquknble-lcflzic cause GERD (gastroesophageal reflux disease) Heart failure chronic right sided heart failure per [facility] [place] records, EF 55-59% on 2021 echo Herniated intervertebral disc History of anesthesia reaction HX anxiety with a ciro-operative med - per pt when inquired with staff was advised is no longer used History of colon polyps benign History of COVID-19 08/2021 History of depression History of myocardial infarction 2003 History of pneumonia 07/2021 HTN (hypertension) controlled, stable per pt Hx of chronic sinusitis Hyperlipidemia RLS (restless legs syndrome) Sleep apnea severe, on PAP treatment, follows with [facility] [place] sleep clinic Spinal stenosis Type 2 diabetes mellitus NIDDM Surgical History H/O umbilical hernia repair [facility] History of cardiac cath 2004...OH...STENTS X2 [facility] History of cardiac cath 2 YRS AGO [facility] - NO STENTS THIS TIME (ROBBIN PARIKH) History of colonoscopy History of hemorrhoidectomy > 20 yrs ago History of left knee surgery History of lumbar spinal fusion History of right knee surgery History of tonsillectomy Family History Mother Family history of diabetes mellitus Heart disease Hypertension Breast cancer Father Family history of diabetes mellitus Family history of prostate cancer in father Hypertension Prostate cancer Sister Family history of diabetes mellitus Uncle Myocardial infarction paternal Grandfather (Paternal) Prostate cancer Grandfather (Maternal) Prostate cancer Other Family history of cancer Denies family history of Ovarian cancer Colorectal cancer Social History Smoking Status: Former smoker Tobacco Type: Cigarettes Age Started Using Tobacco: 14; Age Quit Using Tobacco: 31; Second Hand Exposure: No; Do You Dip or Chew Tobacco: No; Tobacco Cessation Education Requested by Patient: No Hx Alcohol Use: Yes Alcohol type: beer Alcohol type Comment: 10 per week, usually the weekends Hx Substance Use: Yes Non-Prescribed Medications: Crack / Cocaine and Marijuana Non-Prescribed Medications Comment: years ago cocaine he smokes marijuana every now and then now Last Used Substance: Days (ago) Last Used Substance Other:: 04/07/2022 Substance Use Type Other:: MARIJUANA LAST USE A DAY AGO (ADVISED) Preferred Language: Korean Communication Ability: Effective Visual Impairment: Limited Hearing Ability: Hard of Hearing Senior Front End Developer Required: No Beliefs That Will Affect Care: None marital status: Current Living Situation: Spouse current occupational status: retired How many Children do You have: 2 Other Information That Helps Us Care for You: No Feels Safe at Home: Yes Safety Concerns: Feels Safe At This Time Childhood Exposure to Second-Hand Smoke: No Dental Care, Regularly: Yes Assistive Devices: BiPap, Glasses and Walker Assistive Devices Comment: Bipap at night. Review of Systems Review of Systems: All systems reviewed & are unremarkable except as noted in HPI & below Physical Exam Constitutional: WD/WN, vitals as above Eyes: + anicteric sclerae ENMT: external ear and nose normal, oropharynx normal Neck: trachea midline, no thyromegaly Respiratory: normal respiratory effort, lungs clear to auscultation Cardiovascular: Rate/Rhythm: regular rate and regular rhythm Heart Sounds: + murmur (2/6 systolic murmur heard at RUSB) Extremities: no edema Chest (Breasts): Chest: normal inspection of chest Gastrointestinal (Abdomen): normal bowel sounds, soft, nontender, no hepatos plenomegaly Musculoskeletal: Extremities: extremities normal to inspection; no cyanosis and no clubbing Skin: no rashes, warm and dry Neurologic: moves all extremities and awake; no focal motor deficits Psychiatric: A+Ox3, euthymic affect Lymphatic: no lymphedema Results & Data Results & Data ([facility]) Vital Signs (Past 12 Hours) Vital Signs Temp Pulse Resp BP Pulse Ox O2 Del Method 04/16/22 10:00 94 04/16/22 10:00 159/105 H 04/16/22 09:30 134/97 04/16/22 09:30 97 04/16/22 09:00 97 04/16/22 09:00 123/82 04/16/22 08:55 96 04/16/22 08:30 173/106 H 04/16/22 08:00 159/104 H 04/16/22 07:30 129/82 04/16/22 07:00 100 H 20 160/107 H 95 04/16/22 06:30 151/107 H 04/16/22 05:30 164/104 H 04/16/22 05:00 142/101 H 92 04/16/22 04:30 138/99 92 04/16/22 04:00 104 H 92 04/16/22 03:30 105 H 18 156/105 H 92 04/16/22 02:30 101 H 24 170/98 H 93 04/16/22 02:00 100 H 22 158/100 H 93 04/16/22 01:44 101 H 20 185/103 H 95 04/16/22 00:47 36.7 C 123 H 22 208/125 H 96 Room Air Laboratory Results 04/16/22 04/16/22 04/16/22 Range/Units 10:28 09:56 01:15 WBC (4.8-10.8) K/ul RBC (4.63-6.08) M/uL Hgb (14.0-18.0) g/dl Hct (40.1-51.0) % MCV (80.0-100.0) fL MCH (25.0-34.0) pg MCHC (32.0-36.0) g/dL RDW Std Deviation (36.4-46.3) fL RDW Coeff of Carmelina (11.5-14.5) % Plt Count (130-400) K/uL MPV (9.4-12.4) fL Immature Gran % (Auto) % Neut % (Auto) % Lymph % (Auto) % Aurora % (Auto) % Eos % (Auto) % Baso % (Auto) % Neut # (Auto) (1.4-6.5) K/uL Lymph # (Auto) (1.2-3.4) K/uL Aurora # (Auto) (0.24-0.82) K/uL Eos # (Auto) (0-0.50) K/uL Baso # (Auto) (0-0.2) K/uL Immature Gran # (Auto) (0.00-0.02) K/uL Sodium (136-145) mmol/L Potassium (3.5-5.1) mmol/L Chloride (98-107) mmol/L Carbon Dioxide (21-32) mmol/L Anion Gap (3-11) BUN (6-23) mg/dl Creatinine (0.6-1.4) mg/dl Est Cr Clr Drug Dosing ml/min Est GFR ( Amer) ml/min Est GFR (Non-Af Amer) ml/min BUN/Creatinine Ratio (10-20) Glucose (70-99(Fasting)) mg/dl POC Glucose 157 H (70-99) mg/dl Calcium (8.5-10.1) mg/dl Total Bilirubin (0.2-1.0) mg/dl AST (13-39) U/L ALT (7-52) U/L Alkaline Phosphatase (34-104) U/L Total Protein (6.0-8.3) gm/dl Albumin (3.4-5.0) gm/dl Globulin (2.5-4.0) gm/dl Albumin/Globulin Ratio (0.9-2) SARS-CoV-2, RNA, NAAT NEGATIVE (NEGATIVE) Blood Type B Positive Antibody Screen NEGATIVE 04/16/22 04/16/22 Range/Units 01:12 01:12 WBC 10.69 (4.8-10.8) K/ul RBC 5.55 (4.63-6.08) M/uL Hgb 17.7 (14.0-18.0) g/dl Hct 50.8 (40.1-51.0) % MCV 91.5 (80.0-100.0) fL MCH 31.9 (25.0-34.0) pg MCHC 34.8 (32.0-36.0) g/dL RDW Std Deviation 39.4 (36.4-46.3) fL RDW Coeff of Carmelina 11.8 (11.5-14.5) % Plt Count 248 (130-400) K/uL MPV 10.0 (9.4-12.4) fL Immature Gran % (Auto) 0.4 % Neut % (Auto) 66.0 % Lymph % (Auto) 25.7 % Aurora % (Auto) 7.2 % Eos % (Auto) 0.4 % Baso % (Auto) 0.3 % Neut # (Auto) 7.06 H (1.4-6.5) K/uL Lymph # (Auto) 2.75 (1.2-3.4) K/uL Aurora # (Auto) 0.77 (0.24-0.82) K/uL Eos # (Auto) 0.04 (0-0.50) K/uL Baso # (Auto) 0.03 (0-0.2) K/uL Immature Gran # (Auto) 0.04 H (0.00-0.02) K/uL Sodium 140 (136-145) mmol/L Potassium 4.0 (3.5-5.1) mmol/L Chloride 102 (98-107) mmol/L Carbon Dioxide 26 (21-32) mmol/L Anion Gap 12 H (3-11) BUN 19 (6-23) mg/dl Creatinine 1.19 (0.6-1.4) mg/dl Est Cr Clr Drug Dosing 90.3 ml/min Est GFR ( Amer) 74.9 ml/min Est GFR (Non-Af Amer) 64.6 ml/min BUN/Creatinine Ratio 16.0 (10-20) Glucose 125 H (70-99(Fasting)) mg/dl POC Glucose (70-99) mg/dl Calcium 10.4 H (8.5-10.1) mg/dl Total Bilirubin 0.7 (0.2-1.0) mg/dl AST 32 (13-39) U/L ALT 54 H (7-52) U/L Alkaline Phosphatase 60 (34-104) U/L Total Protein 8.7 H (6.0-8.3) gm/dl Albumin 5.4 H (3.4-5.0) gm/dl Globulin 3.3 (2.5-4.0) gm/dl Albumin/Globulin Ratio 1.6 (0.9-2) SARS-CoV-2, RNA, NAAT (NEGATIVE) Blood Type Antibody Screen Diagnostic Findings MR lumbar spine wo con CLINICAL HISTORY: 61 years-old Male with lumbar radiculopathy, L>R. Acute on chronic low back pain with lower extremity radicular symptoms. COMPARISON: Fluoroscopic images of the lumbar spine 07/26/2008 TECHNIQUE: Multiplanar, multi sequence MRI of the lumbar spine was performed without intravenous contrast. FINDINGS: 1.9 cm L4 vertebral body hemangioma. No acute fracture, subluxation, endplate erosion or suspicious bone lesion. There is no significant bone marrow edema. T he conus medullaris terminates at the T12-L1 level. Unremarkable appearance of the cauda equina. L5-S1 laminectomy with posterior interbody reji and screw fusion. T12-L1: Mild facet arthrosis. No central canal or neural foraminal stenosis. L1-L2: Mild facet arthrosis. No central canal or neural foraminal stenosis. L2-L3: Mild intervertebral disc space narrowing with disc desiccation, spondyli tic spurring and small circumferential annular disc bulge eccentric to the left. [id number]-[id number] facet arthrosis. There is flattening of the ventral thecal sac with mild left foraminal narrowing. The central canal and right neural foramen are patent. L3-L4: Mild intervertebral disc space narrowing with disc desiccation, spondylitic spurring and small circumferential annular disc bulge, eccentric to the left. Ligamentum flavum thickening with moderate facet arthrosis. The central canal and right neural foramen are patent. Mild left neural foraminal narrowing. L4-L5: Mild to moderate intervertebral disc space narrowing with disc desiccation, spondylitic spurring and circumferential annular disc bulge. Ligamentum flavum thickening with moderate facet arthrosis and trace facet effusions. There is a large central/left paracentral disc extrusion measuring 1.6 cm transversely and 9 mm in craniocaudal dimensions. This abuts and posteriorly displaces the left L5 nerve root resulting in severe narrowing of the left lateral recess. There is mild central canal stenosis. Moderate right with vapp-gb-[id number] left neural foraminal narrowing. L5-S1: Postoperative changes as above. Mild left paracentral spondylitic spurring. The central canal and neural foramen appear patent. IMPRESSION: 1. Discogenic degeneration at L4-L5 with large central/left paracentral disc extrusion abutting and posteriorly displacing the left L5 nerve root. This results in severe narrowing of the left lateral recess with mild central canal, moderate right and [id number]-[id number] left neural foraminal narrowing. 2. Laminectomy with posterior interbody reji and screw fusion and discectomy at L5-S1. ECG Additional Comments: ECG on 04/16/2022 at 1:01 AM with sinus tachycardia, rate 104, possible left atrial enlargement, age undetermined inferior infarct and anterolateral infarct, inferior infarct now present is changed from previous. Echocardiogram 11/06/2021 with EF 55-59%, moderate LVH, RV systolic function moderately reduced, RV moderately dilated, grade 1 left ventricular diastolic dysfunction, proximal ascending thoracic aorta moderately enlarged 4.4 cm, no wall motion abnormalities PG Care Time/CCT Total # of Minutes Spent Total Time Spent with Patient: Total time spent is greater than 50% in coordination of care (as documented) at patient's floor/unit and/or counseling patient: Coding Level of Care Code 74292 Inpt Consult Level 3 Diagnoses Herniation of left side of L4-L5 intervertebral disc M51.26 Lumbar radiculopathy M54.16 CAD (coronary artery disease) I25.10 HTN (hypertension) I10 Diabetes mellitus E11.9 RLS (restless legs syndrome) G25.81 Hyperlipidemia E78.5 Bipolar disorder F31.9 Sleep apnea G47.30 Ascending aorta enlargement I77.89 Heart failure I50.9 GERD (gastroesophageal reflux disease) K21.9
[2022-04-16] MEDS ORDERED: INSULIN ASPART PER UNIT SC SCH (11:00)
[2022-04-16] MEDS ORDERED: fentaNYL citrate 100 MCG/2 ML VIAL ONE (11:59)
[2022-04-16] MEDS ORDERED: MIDAZOLAM HCL 1 MG/ML 2ML VIAL ONE (11:59)
[2022-04-16] MEDS ORDERED: LIDOCAINE 2% MPF LOCAL 5 ML VIAL INFIL ONE (11:59)
[2022-04-16] MEDS ORDERED: GLYCOPYRROLATE 0.2 MG/ML VIAL ONE (11:59)
[2022-04-16] MEDS ORDERED: DEXAMETHASONE SOD INJ 4 MG/ML VIAL ONE (11:59)
[2022-04-16] MEDS ORDERED: ROCURONIUM BROMIDE 10 MG/ML 5 ML VIAL IV ONE ×6 (11:59→13:13)
[2022-04-16] MEDS ORDERED: PROPOFOL IV EMULSION 10 MG/ML 20 ML VIAL IV ONE (11:59)
[2022-04-16] MEDS ORDERED: ONDANSETRON INJ 2 MG/ML 2 ML VIAL ONE (11:59)
--- NOTE | 2022-04-16 12:14 | History & Physical Bridge Note ---
Date of Service April 16, 2022 History & Physical Bridge Note I have examined the patient, reviewed the History & Physical and in the interval since the performance of the History & Physical I have noted the following changes of clinical significance: no changes noted Lumbar decompression L4-L5 possible fusion L4-5 with hardware removal L5-S1
[2022-04-16] MEDS ORDERED: ceFAZolin 330 MG/ML 1 GM VIAL ONE (12:26)
[2022-04-16] MEDS ORDERED: BUPIVACAINE/EPINEPHRINE 0.25% 1:200,000 30 ML VIAL ONE (12:26)
[2022-04-16] MEDS ORDERED: ePHEDrine sulfate 50 MG/ML AMP IV PRN (12:37)
[2022-04-16] MEDS ORDERED: ATROPINE SULFATE 0.1 MG/ML 10ML SYR IV PRN (12:37)
[2022-04-16] MEDS ORDERED: HYDROmorphone INJ 2 MG/ML SYR/VIAL IV PRN (12:37)
--- NOTE | 2022-04-16 12:37 | Anesthesiology Consultation ---
Date of Service April 16, 2022 Assessment & Plan ASA ASA3 Proposed Anesthesia Anesthesia Type: General Risk / Benefits Reviewed With: PT / POA / Parent / Guardian, Accepts Plan and Informed Consent Obtained History Surgery Operation Date: 04/16/22 08:10 Proposed Procedures p L4-L5 Decompression Possible L4-L5 Decompression - Quinten Barger DO Height/Weight Height: 6 ft 4 in Weight: 121 kg Allergies Allergy/AdvReac Type Severity Reaction Status Date / Time amlodipine Allergy Unknown EDEMA, Verified 04/16/22 02:30 COLDNESS bupropion Allergy Unknown CHEST PAIN Verified 04/16/22 02:30 duloxetine Allergy Unknown PT DOESN'T Verified 04/16/22 02:30 KNOW mirtazapine Allergy Unknown Abdominal Verified 04/16/22 02:30 Pain, ? FURTHER DETAILS ON REACTION - PT NOT SURE tramadol Allergy Unknown INTERFERED Verified 04/16/22 02:30 WITH OTHER MEDICATIONS, PT NOT SURE REACTION atorvastatin AdvReac Unknown MYALGIA Verified 04/16/22 02:30 isosorbide AdvReac Unknown MIGRAINE Verified 04/16/22 02:30 pravastatin AdvReac Unknown MYALGIA Verified 04/16/22 02:30 simvastatin AdvReac Unknown MYALGIA Verified 04/16/22 02:30 Medications Home Medications Medication Instructions Recorded Confirmed Last Taken aspirin 81 mg tablet,delayed 81 mg PO UD 12/26/21 04/16/22 04/02/22 release cholecalciferol (vitamin D3) 25 25 mcg PO HS 12/26/21 04/16/22 04/02/22 mcg (1,000 unit) chewable tablet (Vitamin D3) clopidogrel 75 mg tablet (Plavix) 75 mg PO UD 12/26/21 04/16/22 04/11/22 fexofenadine 180 mg tablet 180 mg PO DAILY PRN SEASONAL 12/26/21 04/16/22 Unknown ALLERGIES fluticasone propionate 50 1 spray intranasal DAILY PRN 12/26/21 04/16/22 Unknown mcg/actuation nasal SEASONAL ALLERGIES spray,suspension (Flonase Allergy Relief) glipizide 2.5 mg tablet, extended 5 mg PO QAM 12/26/21 04/16/22 04/15/22 10:00 release 24 hr hydralazine 25 mg tablet 25 mg PO BID 12/26/21 04/16/22 04/15/22 23:30 hydrochlorothiazide 12.5 mg capsule 12.5 mg PO QAM 12/26/21 04/16/22 04/15/22 10:00 hydrocortisone 2.5 % topical cream 1 applic topical UD PRN PSORIASIS 12/26/21 04/16/22 Unknown magnesium oxide 500 mg capsule 500 mg PO 12/26/21 04/16/22 04/15/22 23:30 metoprolol succinate 25 mg 12.5 mg PO [facility] 12/26/21 04/16/22 04/15/22 10:00 tablet,extended release 24 hr zbrlqdur-bhi-dfsiy acid 300 1 tab PO QAM 12/26/21 04/16/22 04/15/22 10:00 mcg-lycopene 600 mcg-lutein 300 mcg tablet (Centrum Silver Men) pantoprazole 40 mg tablet,delayed 40 mg PO [facility] 12/26/21 04/16/22 04/15/22 10:00 release risperidone 0.5 mg tablet 0.5 mg PO 12/26/21 04/16/22 04/15/22 23:30 rosuvastatin 40 mg tablet 40 mg PO [facility] 12/26/21 04/16/22 04/14/22 pm flash glucose scanning reader 02/21/22 04/16/22 Unknown ([place] [employer] [place]) metformin 500 mg tablet,extended 1,000 mg PO BID 02/21/22 04/16/22 04/15/22 17:30 release 24 hr nitroglycerin 0.4 mg sublingual 0.4 mg sublingual Q5M PRN Chest 02/21/22 04/16/22 Unknown tablet Pain ropinirole 0.5 mg tablet 1.5 mg PO HS 02/21/22 04/16/22 04/15/22 23:30 cyclobenzaprine 10 mg tablet 10 mg PO TID PRN muscle spasm #60 04/09/22 04/16/22 04/15/22 tabs methylprednisolone 4 mg tablet See Rx Instructions .Route 04/09/22 04/16/22 04/15/22 12:00 (Medrol) .COMPLEX #18 tabs 12 mg oxycodone 5 mg tablet 5 mg PO Q6H PRN pain #60 tabs 04/09/22 04/16/22 04/15/22 23:30 ramipril 10 mg capsule 10 mg PO BID 04/16/22 04/16/22 04/15/22 23:30 Active Medications Generic Name Dose Route Start Last Admin Trade Name Bernardoq PRN Reason Stop Dose Admin Sodium Chloride 1,000 mls @ 100 mls/hr 04/16/22 09:16 04/16/22 10:32 Nss 1000ml IV 05/16/22 09:15 100 mls/hr .Q10H JESSI Administration Acetaminophen 1,000 mg in 100 mls @ 400 mls/hr 04/16/22 09:16 04/16/22 10:04 Ofirmev IV 04/17/22 09:17 Infused Q8H PRN Infusion Pain Rating 1-3 & Pre PT Lorazepam 0.5 mg 04/16/22 09:16 04/16/22 09:49 Lorazepam 0.5 Mg Tab PO 05/16/22 09:15 0.5 mg Q8H PRN Administration sedation/anxiety Oxycodone HCl 5 - 10 mg 04/16/22 09:16 04/16/22 10:32 Oxycodone Hcl Ir 5 Mg Tab (Immediate Release) PO 04/30/22 09:15 10 mg Q4H PRN Administration mod to severe pain NPO Date Last Intake of Fluids: 04/16/22 Time Last Intake of Fluids: 10:32 Date Last Intake of Solids: 04/15/22 Time Last Intake of Solids: 17:30 Past Medical History Medical History Anxiety Aortic root enlargement 4.4 cm 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 Bipolar disorder CAD (coronary artery disease) NSTEMI 2003-04/11/2004 cath s/p PTCA and stenting of LAD with non drug eluting stent and CHRISTEL to LCx, residual 50-60% stenosis ramus-05/2004 cath patent stents and mild luminal irregularities-08/2019 cath 30% in stent restenoses of proximal LAD, 40% stenosis LAD and 30% stenosis small ramus, follows with [facility] cardio Carotid artery disease < 50% stenosis ICAs bilat on 10/2021 carotid duplex Family history of reaction to anesthesia pt reports father suffering stroke ogzi-rairiifiglo-iowmyss cause GERD (gastroesophageal reflux disease) Heart failure chronic right sided heart failure per [facility] records, EF 55-59% on 2021 echo Herniated intervertebral disc History of anesthesia reaction HX anxiety with a ciro-operative med - per pt when inquired with staff was advised is no longer used History of colon polyps benign History of COVID-19 08/2021 History of depression History of myocardial infarction 2004 History of pneumonia 07/2021 HTN (hypertension) controlled, stable per pt Hx of chronic sinusitis Hyperlipidemia RLS (restless legs syndrome) Sleep apnea severe, on PAP treatment, follows with [facility] sleep clinic Spinal stenosis Type 2 diabetes mellitus NIDDM Exercise / Class Metabolic Activity II 4-5 Yardwork/Stairs/Walk up hill Past Family History Family History Mother Family history of diabetes mellitus Heart disease Hypertension Breast cancer Father Family history of diabetes mellitus Family history of prostate cancer in father Hypertension Prostate cancer Sister Family history of diabetes mellitus Uncle Myocardial infarction paternal Grandfather (Paternal) Prostate cancer Grandfather (Maternal) Prostate cancer Other Family history of cancer Denies family history of Ovarian cancer Colorectal cancer Past Surgical History Surgical History H/O umbilical hernia repair [facility] History of cardiac cath 2004...AK...STENTS X2 [facility] History of cardiac cath 2 YRS AGO [facility] - NO STENTS THIS TIME (ROBBIN PARIKH) History of colonoscopy History of hemorrhoidectomy > 20 yrs ago History of left knee surgery History of lumbar spinal fusion History of right knee surgery History of tonsillectomy Past Anesthesia History No Hx of Anesthesia Complications and No Family Hx of Anesthesia Complications History of PONV No Hx of PONV and No Hx of Motion Sickness Social History Smoking Status: Former smoker tobacco type: cigarettes and pipe Hx Alcohol Use: Yes Alcohol type: beer alcohol intake frequency: other Hx Substance Use: Yes substance use type: marijuana Substance Use Type Other:: MARIJUANA LAST USE A DAY AGO (ADVISED) Last Used Substance: Days (ago) Review of Systems denies fever/cough/ colds/ chest pain/ SOB/ NATALY denies NATALY Physical Exam Vital Signs Last Vital Signs Temp 36.7 C 04/16/22 12:04 Pulse 106 H 04/16/22 12:04 Resp 20 04/16/22 12:04 BP 140/71 04/16/22 12:04 Pulse Ox 93 04/16/22 12:04 O2 Del Method 04/16/22 00:47 ENMT Mouth: no TMJ abnormality and no dentition abnormality Thyromental Distance: > or= 3.5 Finger Breadths Mallampati Class: II Neck neck extension not limited Respiratory normal respiratory effort; no respiratory distress Auscultation: lungs clear to auscultation bilaterally Cardiovascular Rate/Rhythm: regular rate and regular rhythm Neurologic moves all extremities Psychiatric Orientation: alert and oriented x 3 Testing Laboratory Results 04/16/22 01:12 04/16/22 01:12 Blood Type B Positive 04/16/22 09:56 Antibody Screen NEGATIVE 04/16/22 09:56 04/16/22 04/16/22 12:22 10:28 POC Glucose 156 H 157 H Electrocardiogram Date: 04/16/22 Sinus tachycardia, rate 104 bpm Possible Left atrial enlargement Inferior infarct , age undetermined Anterolateral infarct , age undetermined Abnormal ECG When compared with ECG of 19-JUL-2008 14:56, Vent. rate has increased BY 57 BPM Inferior infarct is now Present Chest X-Ray Date: 12/28/21 Findings: + NAD Echocardiogram Date: 11/06/21 EF 55-59% LV wall thickness is moderately increased RV systolic function is moderately reduced RV cavity is moderately dilated LV diastolic function is mildly abnormal No pericardial effusion is noted The proximal ascending thoracic aorta is moderately enlarged 4.4
[2022-04-16] MEDS ORDERED: KETAMINE 50 MG/5 ML SYRINGE ONE (12:48)
[2022-04-16] MEDS ORDERED: FLOSEAL HEMOSTATIC MATRIX 10ML TOP ONE (13:25)
--- NOTE | 2022-04-16 15:06 | Operative Report ---
Post Operative Report Pre & Post Diagnosis Operation Date: 04/16/22 08:10 Pre-Op Diagnosis: Herniation of left side of L4-L5 intervertebral disc with spinal stenosis Post-Op Diagnosis: Same I identified the patient and participated in the time-out.: Yes Procedure Operation Date: 04/16/22 08:10 Actual Procedures #1 removal of posterior instrumentation L5-S1. #2 exploration of fusion L5-S1. #3 lumbar decompression with bilateral medial facetectomies and foraminotomies L4-L5. #4 posterior spinal fusion L4-5. #5 placement of posterior instrumentation L4-L5. #6 interbody fusion L4-L5. #7 placement of Spira 14 x 26 mm cage at L4-L5. #8 placement locally harvested morselized autograft in the posterior gutters. #9 placement of I factor combined with V toss interbody space and posterior gutters. Surgeon Quinten Barger, Behavioral Health Aide None Estimated Blood Loss 200 Findings See Below Patient is 6 foot 4 weighing 121 kg with a BMI in excess of 32. The patient's body habitus did contribute to significant technical difficulty requiring her deepest retractors and longer instruments in order to perform his procedure. Specimens None Indications This is a 61-year-old male who presents with a marked decline in status with severe radiculopathy and inability to ambulate. Subsequently he is here for urgent decompression. Description of Procedure Patient was met with identified informed consent obtained. Patient was then taken to the operative suite underwent intubation placed in the prone position the Torres table atop the Camilo frame. Sharp dissection with assisted Bovie cautery performed down to and exposing the lamina and transverse processes of L4-L5. Decompression was then performed including medial facetectomy. I noted significant adhesions of the traversing L5 nerve root as well as extension of the disc into the foramen. I did have to resect the entire facet to adequately and safely access the root and mobilize it in order to obtain the of herniated free fragments. Subsequently I proceeded to remove the hardware at L5-S1 bilaterally explore the fusion mass noted to be intact. Performed a complete decompression of L4-5 with medial facetectomies bilaterally and complete facetectomy on the left. Pedicle screws were then placed in L4-5 bilaterally with assistance of fluoroscopy and the properly sized reji placed. By way of a transfemoral approach and left complete discectomy L4-5 was performed endplates curetted to subcortically bone and a 14 x 26 mm spiral cage with I factor was tapped in position. The rods were then locked into final position bilaterally. The transverse processes of L 4 L5 burred to subcortically bone. I factor model V toss and locally harvested morselized autograft was placed in the posterior gutters. 15 round ESTIVEN drain inserted. The incision was then closed with 1 Vicryl the fascia 2-0 Vicryl subcutaneously and 4 Monocryl for final skin closure. Steri-Strip sterile dressings placed. Patient waken taken to PACU stable condition. I attest to the content of the Intraoperative Record and any orders documented therein. Any exceptions are noted below.
[2022-04-16] MEDS: fentaNYL citrate 100 MCG/2 ML VIAL IV PRN ×5 (15:23→15:53)
--- NOTE | 2022-04-16 15:31 | Fluoroscopy Report ---
FL lumbar spine 2-3V CLINICAL HISTORY: L4-5 decompression and fusion COMPARISON STUDY: Lumbar spine 04/13/2022. FLUOROSCOPY TIME: 17 second. FINDINGS: 2 fluoroscopic spot images of the lumbar spine demonstrate posterior decompression and fusi on at L4-5 with pedicle screws and rods. The hardware is intact. A disc spacer is in place. IMPRESSION: Fluoroscopic assistance provided for L4-5 decompression and fusion. ACT 112: Negative or not required by law. Electronically signed by: Jake Marino M.D. 04/16/2022 3:30 PM
--- NOTE | 2022-04-16 15:53 | Electrocardiogram Report ---
Test Reason : Blood Pressure : / mmHG Vent. Rate : 104 BPM Atrial Rate : 104 BPM P-R Int : 168 ms QRS Dur : 094 ms QT Int : 346 ms P-R-T Axes : 049 -10 -17 degrees QTc Int : 454 ms Sinus tachycardia Possible Left atrial enlargement Inferior infarct , age undetermined Anterior infarct , age undetermined Abnormal ECG When compared with ECG of 19-JUL-2008 14:56, Vent. rate has increased BY 57 BPM Confirmed by Bruno De Los Santos ([id number]) on 04/16/2022 3:53:34 PM Referred By: REFERRED SELF Confirmed By:Bruno De Los Santos
[2022-04-16] MEDS ORDERED: ALUMINUM/MAGNESIUM SUSP 30 ML UDC PO PRN (16:32)
[2022-04-16] MEDS ORDERED: diphenhydrAMINE Capsule 25 MG CAP PO PRN (16:32)
[2022-04-16] MEDS ORDERED: FAMOTIDINE 20 MG TAB PO PRN (16:32)
[2022-04-16] MEDS ORDERED: hydrOXYzine HCl 25 MG TAB PO PRN (16:32)
[2022-04-16] MEDS ORDERED: SOD PHOSPHATE/SOD BIPHOSPHATE ENEMA 132 ML BTL PR PRN (16:32)
[2022-04-16] MEDS ORDERED: traMADol HCL 50 MG TABLET PO PRN (16:32)
[2022-04-16] MEDS ORDERED: bisacodyL 10 MG SUPP PR PRN (16:32)
--- NOTE | 2022-04-16 16:36 | Anesthesiology Progress Note ---
Date of Service April 16, 2022 Anesthesia Post Procedure Vital Signs Vital Signs: Temp Pulse Pulse Resp BP BP Pulse Ox 04/16/22 15:35 58 L 21 140/82 99 04/16/22 15:25 58 L 17 132/90 100 04/16/22 15:55 36.8 C 67 15 132/69 97 04/16/22 15:45 36.8 C 50 L 19 132/69 99 04/16/22 15:15 58 L 20 149/81 H 100 04/16/22 15:09 36.5 C 14 160/87 H 95 04/16/22 12:04 36.7 C 106 H 20 140/71 93 04/16/22 11:38 93 04/16/22 11:30 143/91 H 04/16/22 11:24 94 04/16/22 11:00 94 04/16/22 11:00 146/93 H 04/16/22 10:49 96 04/16/22 10:00 94 04/16/22 10:00 159/105 H 04/16/22 09:30 134/97 04/16/22 09:30 97 04/16/22 09:00 97 04/16/22 09:00 123/82 04/16/22 08:55 96 04/16/22 08:30 173/106 H 04/16/22 08:00 159/104 H 04/16/22 07:30 129/82 04/16/22 07:00 100 H 20 160/107 H 95 04/16/22 06:30 151/107 H 04/16/22 05:30 164/104 H 04/16/22 05:00 142/101 H 92 04/16/22 04:30 138/99 92 04/16/22 04:00 104 H 92 04/16/22 03:30 105 H 18 156/105 H 92 04/16/22 02:30 101 H 24 170/98 H 93 04/16/22 02:00 100 H 22 158/100 H 93 04/16/22 01:44 101 H 20 185/103 H 95 04/16/22 00:47 36.7 C 123 H 22 208/125 H 96 O2 Del Method O2 Flow Rate 04/16/22 15:35 Oxymask 4 04/16/22 15:25 Oxymask 4 04/16/22 15:55 Oxymask 2 04/16/22 15:45 Oxymask 2 04/16/22 15:15 Oxymask 5 04/16/22 15:09 Oxymask 5 04/16/22 12:04 04/16/22 11:38 04/16/22 11:30 04/16/22 11:24 04/16/22 11:00 04/16/22 11:00 04/16/22 10:49 04/16/22 10:00 04/16/22 10:00 04/16/22 09:30 04/16/22 09:30 04/16/22 09:00 04/16/22 09:00 04/16/22 08:55 04/16/22 08:30 04/16/22 08:00 04/16/22 07:30 04/16/22 07:00 04/16/22 06:30 04/16/22 05:30 04/16/22 05:00 04/16/22 04:30 04/16/22 04:00 04/16/22 03:30 04/16/22 02:30 04/16/22 02:00 04/16/22 01:44 04/16/22 00:47 Room Air Pain Intensity Bilateral Back: Pain Intensity: 5 Transfer of Care Handoff Completed per policy Notes Mental Status: alert / awake / arousable and participated in evaluation Patient Amnestic to Procedure: Yes Nausea / Vomiting: adequately controlled Pain: adequately controlled Airway Patency, RR, SpO2: stable & adequate BP & HR: stable & adequate Hydration State: stable & adequate Anesthetic Complications: no major complications apparent and Pt Satisfied with anesthetic care
[2022-04-16] MEDS: hydrALAZINE HCL 25 MG TAB PO SCH ×2 (16:38→20:16)
[2022-04-16] MEDS: ENALAPRIL MALEATE 10 MG TAB PO SCH (16:39)
[2022-04-16] MEDS: METOPROLOL SUCC 25MG EXT REL TAB PO SCH (16:39)
[2022-04-16] MEDS: PANTOprazole 40 MG TAB PO SCH (16:40)
[2022-04-16] MEDS: ROSUVASTATIN CALCIUM 20 MG TAB PO SCH (16:41)
[2022-04-16] MEDS: oxyCODONE HCL IR 5 MG TAB (IMMEDIATE RELEASE) PO PRN ×2 (16:58→21:35)
[2022-04-16] MEDS: SODIUM CHLORIDE 0.9% 1000ML 1,000 ML IV SCH ×2 (17:01→23:21)
[2022-04-16] MEDS ORDERED: LANTUS PER UNIT CHARGE SQ ONE (17:45)
[2022-04-16] MEDS: INSULIN ASPART PER UNIT SC SCH ×2 (17:54→20:26)
[2022-04-16] MEDS: DOCUSATE SODIUM/SENNA 50/8.6MG TAB PO SCH (20:16)
[2022-04-16] MEDS: ACETAMINOPHEN 500 MG TAB PO PRN (20:27)
[2022-04-16] MEDS: ceFAZolin 2000MG 2,000 MG/15 ML SYR IV SCH (20:27)
[2022-04-16] MEDS: MAGNESIUM OXIDE 400 MG TAB PO SCH (20:28)
[2022-04-16] MEDS: CHOLECALCIFEROL 1,000 UNITS 25 MCG TAB PO SCH (20:29)
[2022-04-16] MEDS: rOPINIRole HCL 0.25 MG TABLET PO SCH (20:29)
[2022-04-16] MEDS: risperiDONE 0.5 MG TABLET PO SCH (20:31)
[2022-04-17] MEDS: oxyCODONE HCL IR 5 MG TAB (IMMEDIATE RELEASE) PO PRN ×2 (01:21→08:42)
[2022-04-17] MEDS: POLYETHYLENE (MIRALAX) 17 GM PACK PO SCH ×3 (06:25→17:24)
[2022-04-17] MEDS: ceFAZolin 2000MG 2,000 MG/15 ML SYR IV SCH (06:37)
[2022-04-17 08:28] LABS: Basophils # (auto) 0.02 K/uL (0-0.2); Basophils % (auto) 0.1 %; Eosinophils # (auto) 0.01 K/uL (0-0.50); Eosinophils % (auto) 0.1 %; Hematocrit (blood only) 38.9 % (40.1-51.0); Hemoglobin 13.6 g/dl (14.0-18.0); Immature Granulocytes # (auto) 0.05 K/uL (0.00-0.02); Immature Granulocytes % (auto) 0.4 %; Lymphocytes # (auto) 1.91 K/uL (1.2-3.4); Lymphocytes % (auto) 14.1 %; Mean Corpuscular Hemoglobin 31.9 pg (25.0-34.0); Mean Corpuscular Volume 91.1 fL (80.0-100.0); Mean Platelet Volume 10.1 fL (9.4-12.4); Monocytes # (auto) 1.12 K/uL (0.24-0.82); Monocytes % (auto) 8.3 %; Neutrophils # (auto) 10.43 K/uL (1.4-6.5); Platelet Count 230 K/uL (130-400); RDW Coefficient of Variation 11.9 % (11.5-14.5); RDW Standard Deviation 39.6 fL (36.4-46.3); Red Blood Count 4.27 M/uL (4.63-6.08); White Blood Count 13.54 K/ul (4.8-10.8)
[2022-04-17 08:31] LABS: BUN Creatinine Ratio 15.8 (10-20); Calcium 9.1 mg/dl (8.5-10.1); Creatinine Clr Calc Pharmacy 94.3 ml/min; Est GFR (African American) 78.9 ml/min; Est GFR (Non-African American) 68.1 ml/min; Potassium 4.4 mmol/L (3.5-5.1)
[2022-04-17] MEDS: ASPIRIN 81 MG ECTAB PO SCH (08:43)
[2022-04-17] MEDS: dexAMETHasone 6 MG in SYRINGE 0 ML IV SCH (08:43)
[2022-04-17] MEDS: ENALAPRIL MALEATE 10 MG TAB PO SCH (08:43)
[2022-04-17] MEDS: METOPROLOL SUCC 25MG EXT REL TAB PO SCH (08:44)
[2022-04-17] MEDS: hydrALAZINE HCL 25 MG TAB PO SCH ×2 (08:44→20:38)
[2022-04-17] MEDS: PANTOprazole 40 MG TAB PO SCH (08:45)
[2022-04-17] MEDS: ROSUVASTATIN CALCIUM 20 MG TAB PO SCH (08:45)
--- NOTE | 2022-04-17 08:47 | Pharmacy Report ---
Pharmacy Glycemic Short Note 2 - Date of Service April 17, 2022 - Glycemic Short BSG Results (Last 24 hours): 04/16/22 04/16/22 04/16/22 10:28 12:22 15:11 Glucose POC Glucose 157 H 156 H 152 H 04/16/22 04/16/22 04/17/22 17:16 20:18 07:36 Glucose 145 H POC Glucose 240 H 271 H 04/17/22 07:56 Glucose POC Glucose 141 H OUTPATIENT ANTIDIABETIC REGIMEN: * Metformin ER 1000 mg PO BIDM * Glipizide 5 mg PO qAM HbA1c: 7.6% (12/28/21) ASSESSMENT: * STEVE is a 61 year old male POD #1 s/p L4-L5 decompression/fusion * Received 8 mg IV dexamethasone in OR and ordered 6 mg IV daily ongoing starting this morning * BSGs elevated yesterday secondary to steroids - given 30 units of Lantus and aggressive Novolog parameters * Will tighten carb ratio today and increase Lantus to ~0.4 unit/kg of adjusted body weight with steroids * Uncontrolled T2DM based on A1c with oral agents only PLAN FOR INPATIENT GLYCEMIC CONTROL: * Hold outpatient oral diabetes medications * Basal insulin * Lantus 40 units SQ daily with IV dexamethasone * Bolus insulin * NovoLog per scale ACHS or Q6hrs while NPO * Goal Range: Low 110 mg/dL - High 140 mg/dL * Correction Factor: 15 mg/dL/unit * Nutritional / Prandial insulin per carb ratio of 1 unit per 4 grams CHO consumed
[2022-04-17] MEDS: INSULIN ASPART PER UNIT SC SCH ×4 (08:48→20:43)
[2022-04-17] MEDS ORDERED: LANTUS PER UNIT CHARGE SQ SCH (09:00)
--- NOTE | 2022-04-17 11:02 | Orthopedic Progress Note ---
Date of Service April 17, 2022 Assessment & Plan (1) Herniation of left side of L4-L5 intervertebral disc: Plan: At this time we will continue physical therapy monitor his ESTIVEN output anticipate discharge home in next day or so. Admission and Anticipated Discharge Date Admission Date: April 16, 2022 Subjective Patient's back pain is controlled leg symptoms markedly improved Physical Exam Physical Exam: Patient is in the chair at the bedside. Appears comfortable. Skin strength testing. Results & Data ([facility]) Vital Signs (Past 12 Hours) Vital Signs Temp Pulse Resp BP Pulse Ox O2 Del Method 04/17/22 07:48 37.0 C 64 16 157/74 H 94 04/17/22 03:08 36.9 C 75 20 152/81 H 96 Room Air 04/16/22 23:09 36.8 C 66 20 141/66 H 96 Room Air
--- NOTE | 2022-04-17 13:01 | Hospitalist Progress Note ---
Date of Service April 17, 2022 Assessment & Plan (1) Herniation of left side of L4-L5 intervertebral disc: Plan: With intractable pain and left lower extremity lumbar radiculopathy s/p lumbar decompression and fusion, pod#1 Postoperative pain management, bowel regimen, activity, and drain management as per orthopedic surgery Avoid use of NSAIDs given history of CAD Encourage use of incentive spirometer q1h wa for atelectasis/pna prevention DVT ppx as per primary service Mild leukocytosis noted on AM labs likely multifactorial in setting of surgery + steroids Encourage ambulation (2) Lumbar radiculopathy: Plan: As above (3) CAD (coronary artery disease): Plan: With history of NSTEMI 03/2004 s/p nondrug-eluting stent to the LAD and to CHRISTEL to the LCx. Has had 2 more cardiac catheterization since then in 05/2004 and again 08/2019, both revealing nonobstructive CAD without further intervention. No active symptoms ECG here with inferior and anterolateral infarct with inferior infarct be new from previous, however does not seem to have active symptoms Held his Plavix for the last several days due to upcoming procedure Continue aspirin, enalapril, metoprolol, rosuvastatin Was seen by his supervisor special effects several months ago for preoperative clearance and was medically optimized at that time Stable, no cp (4) HTN (hypertension): Plan: Blood pressures been elevated secondary to pain at this point and likely recent steroid use Continue home enalapril, metoprolol, hydralazine, but hold p.o. HCTZ while on IV fluids and while n.p.o. Monitor BPs Restarted HCTZ 04/17 (5) Diabetes mellitus: Plan: Pharmacy is consulted Most recent hemoglobin A1c well controlled 6.8% Continue Lantus and NovoLog Diabetic diet when eating Holding home metformin and glipizide (6) RLS (restless legs syndrome): Plan: Stable, continue home ropinirole (7) Hyperlipidemia: Plan: Continue statin (8) Bipolar disorder: Plan: Stable Continue home risperidone at bedtime (9) Sleep apnea: Plan: Continue CPAP at night-placed order to bring in from home (10) Ascending aorta enlargement: Plan: Moderately large 4.4 cm Needs continued blood pressure control Monitor as an outpatient (11) Heart failure: Plan: Right sided and chronic HFpEF no evidence of volume overload holding HCTZ and giving fluids perioperatively monitor volume status, restarted HCTZ 04/17 Murmur on exam is chronic as per review of Cardio notes and ECHO 11/2021 with preserved EF, no significant valvular disease (12) GERD (gastroesophageal reflux disease): Plan: continue PPI Plan DVT prophylaxis-CLIFFORD ramose, SCDs, avoid chemical anticoagulation due to spine surgery Medically stable. No new recommendations/orders (other than resuming his HCTZ). Medicine will sign off but continue to follow peripherally through daily chart checks. Please feel free to notify of any questions/concerns if we can be of help. Thank you for allowing us to participate in the care of your patient. Plan d/w Dr. Delcid. Admission and Anticipated Discharge Date Admission Date: April 16, 2022 Subjective Patient seen on rounds this morning. He is pod#1 from lumbar decompression and fusion by Dr. Barger. He reports some incisional soreness but back/leg pain that he was experiencing prior to surgery has resolved. Voiding w/o issue. No chest pain or dyspnea. No BM yet but is passing flatus. Tolerating diet. No questions. Review of Systems Review of Systems: All systems reviewed and are unremarkable except as noted in HPI and below. Denies fever, chills, fatigue, headache, nasal congestion, sore throat, cough, chest pain, shortness of breath, palpitations, orthopnea, PND, abdominal pain, n/v/d, constipation, dysuria, hematuria, frequency, joint pain or swelling, easy bruising or bleeding, skin lesions or rashes. Physical Exam Physical Exam: GENERAL: 61 yo Well-developed, well-nourished WM. NAD. LUNGS: Clear to auscultation bilaterally. No W/R/R. CARDIOVASCULAR: Regular rate and rhythm. ABDOMEN: Soft, non-tender and non-distended. BS normoactive x 4 quad. EXTREMITIES: No edema. Non-tender. Peripheral pulses +2/4. NEUROLOGIC: A&O x3. Nonfocal PSYCHIATRIC: Cooperative. Appropriate mood and affect. SKIN: Warm, dry, intact. No rashes or lesions. Back incision dressed/dry. ESTIVEN drain visualized. Results & Data Results & Data ([facility]) Vital Signs (Past 12 Hours) Vital Signs Temp Pulse Resp BP Pulse Ox O2 Del Method 04/17/22 11:23 36.9 C 76 16 174/68 H 93 Room Air 08/30/22 07:48 37.0 C 64 16 157/74 H 94 04/17/22 03:08 36.9 C 75 20 152/81 H 96 Room Air Laboratory Results 04/17/22 07:36 04/17/22 07:36 PG Care Time/CCT Total # of Minutes Spent Total Time Spent with Patient: Total time spent is greater than 50% in coordination of care (as documented) at patient's floor/unit and/or counseling patient: Coding Level of Care Code 05041 Subseq Hosp Care Lvl 2 Diagnoses Herniation of left side of L4-L5 intervertebral disc M51.26 Lumbar radiculopathy M54.16 CAD (coronary artery disease) I25.10 HTN (hypertension) I10 Diabetes mellitus E11.9 RLS (restless legs syndrome) G25.81 Hyperlipidemia E78.5 Bipolar disorder F31.9 Sleep apnea G47.30 Ascending aorta enlargement I77.89 Heart failure I50.9 GERD (gastroesophageal reflux disease) K21.9
[2022-04-17] MEDS: hydroCHLOROthiazide 25 MG TAB PO SCH (13:39)
[2022-04-17] MEDS: DOCUSATE SODIUM/SENNA 50/8.6MG TAB PO SCH (20:37)
[2022-04-17] MEDS: MAGNESIUM OXIDE 400 MG TAB PO SCH (20:37)
[2022-04-17] MEDS: MAGNESIUM HYDROXIDE SUSP 30 ML UDC PO PRN (20:37)
[2022-04-17] MEDS: CHOLECALCIFEROL 1,000 UNITS 25 MCG TAB PO SCH (20:38)
[2022-04-17] MEDS: risperiDONE 0.5 MG TABLET PO SCH (20:38)
[2022-04-17] MEDS: rOPINIRole HCL 0.25 MG TABLET PO SCH (20:38)
[2022-04-18] MEDS: POLYETHYLENE (MIRALAX) 17 GM PACK PO SCH ×3 (00:37→12:25)
[2022-04-18] MEDS: ACETAMINOPHEN 500 MG TAB PO PRN ×3 (01:57→17:49)
[2022-04-18 06:31] LABS: Basophils # (auto) 0.02 K/uL (0-0.2); Basophils % (auto) 0.2 %; Eosinophils # (auto) 0.03 K/uL (0-0.50); Eosinophils % (auto) 0.3 %; Hemoglobin 12.8 g/dl (14.0-18.0); Immature Granulocytes # (auto) 0.07 K/uL (0.00-0.02); Immature Granulocytes % (auto) 0.6 %; Lymphocytes % (auto) 23.8 %; Mean Corpuscular Hemoglobin 31.5 pg (25.0-34.0); Mean Corpuscular Hgb Conc 34.6 g/dL (32.0-36.0); Mean Corpuscular Volume 91.1 fL (80.0-100.0); Mean Platelet Volume 10.4 fL (9.4-12.4); Monocytes # (auto) 1.13 K/uL (0.24-0.82); Monocytes % (auto) 9.6 %; Neutrophils # (auto) 7.73 K/uL (1.4-6.5); Neutrophils % (auto) 65.5 %; Platelet Count 200 K/uL (130-400); RDW Coefficient of Variation 11.7 % (11.5-14.5); RDW Standard Deviation 39.3 fL (36.4-46.3); Red Blood Count 4.06 M/uL (4.63-6.08); White Blood Count 11.78 K/ul (4.8-10.8)
[2022-04-18 07:08] LABS: BUN Creatinine Ratio 20.2 (10-20); Calcium 8.9 mg/dl (8.5-10.1); Creatinine Clr Calc Pharmacy 103.3 ml/min; Est GFR (African American) 88.1 ml/min; Est GFR (Non-African American) 76.1 ml/min
[2022-04-18] MEDS: dexAMETHasone 6 MG in SYRINGE 0 ML IV SCH (08:05)
[2022-04-18] MEDS: ASPIRIN 81 MG ECTAB PO SCH (08:05)
[2022-04-18] MEDS: hydrALAZINE HCL 25 MG TAB PO SCH (08:05)
[2022-04-18] MEDS: ROSUVASTATIN CALCIUM 20 MG TAB PO SCH (08:05)
[2022-04-18] MEDS: PANTOprazole 40 MG TAB PO SCH (08:05)
[2022-04-18] MEDS: hydroCHLOROthiazide 25 MG TAB PO SCH (08:06)
[2022-04-18] MEDS: ENALAPRIL MALEATE 10 MG TAB PO SCH (08:06)
[2022-04-18] MEDS: METOPROLOL SUCC 25MG EXT REL TAB PO SCH (08:07)
[2022-04-18] MEDS: INSULIN ASPART PER UNIT SC SCH ×3 (08:37→17:34)
[2022-04-18] MEDS ORDERED: LANTUS PER UNIT CHARGE SQ SCH (09:00)
--- NOTE | 2022-04-18 10:01 | Discharge Summary ---
Date of Service April 18, 2022 Admission HPI Per Admitting Provider This is a 61-year-old male well-known to me the presents to the emergency room early this morning with continued incapacitating left leg pain. I did see him a few days earlier and we tried to manage him with medical management. He is undergone extensive course of personal caregiver and various pain medications as well as steroids without resolution. He continues to note significant strength deficit involving left lower extremity limitations with ambulation. The right lower extremity is asymptomatic. He is no longer able to handle of the significant pain. Principal Diagnosis Lumbar disc herniation with radiculopathy L4-5 Discharge Data Allergies Allergy/AdvReac Type Severity Reaction Status Date / Time amlodipine Allergy Unknown EDEMA, Verified 04/16/22 02:30 COLDNESS bupropion Allergy Unknown CHEST PAIN Verified 04/16/22 02:30 duloxetine Allergy Unknown PT DOESN'T Verified 04/16/22 02:30 KNOW mirtazapine Allergy Unknown Abdominal Verified 04/16/22 02:30 Pain, ? FURTHER DETAILS ON REACTION - PT NOT SURE tramadol Allergy Unknown INTERFERED Verified 04/16/22 02:30 WITH OTHER MEDICATIONS, PT NOT SURE REACTION atorvastatin AdvReac Unknown MYALGIA Verified 04/16/22 02:30 isosorbide AdvReac Unknown MIGRAINE Verified 04/16/22 02:30 pravastatin AdvReac Unknown MYALGIA Verified 04/16/22 02:30 simvastatin AdvReac Unknown MYALGIA Verified 04/16/22 02:30 Consultations 04/16/22 09:16 Consult Internal Medicine Routine 04/17/22 03:08 Consult Patient Rep [Consult Patient Services] Routine 04/17/22 17:48 Burn CD for patient Routine Procedures Performed Operation Date: 04/16/22 08:10 Actual Procedures p L4-L5 Decompression, L4-S1 Fusion, Interbody Fusion L4-L5 (Not Applicable) - Quinten Barger DO s Hardware Removal L5-S1(Not Applicable) - Quinten Barger DO Ordered Studies 04/16/22 12:00 FL lumbar spine 2-3V Routine Hospital Course (1) Herniation of left side of L4-L5 intervertebral disc: Patient was admitted with severe back pain and leg weakness and underwent urgent decompression fusion the following day. He [place] well stable orthopedic for postoperative. Postop day 1 he was up and ambulating pain markedly improved strength improved. Progressed to postop day #2. ESTIVEN drain decreased appropriately. Extra strength testing. Pain well controlled. Subsequent discharge home. Discharge orders instructions from the chart for further review. Total Time Total Time Spent Total Time Spent (In Minutes): 20 minutes Discharge Plan Discharge Items Patient Disposition: Home - Self-Care Reason For Visit: POST OP Discharge Diagnosis: Lumbar spinal stenosis with radiculopathy Activity: As commented below Non-emergency contact: Primary Care Provider Call non-emergency contact if: you have any medication questions Follow-up/Referrals: Jon Crockett MD [Primary Care Provider] - Diet: Regular Addtl Attending Provider Instructions: ACTIVITY RECOMMENDATIONS: SELF CARE INSTRUCTIONS AFTER THORACIC/LUMBAR FUSIONS 1. You may walk to your tolerance. It is good exercise for your legs and back. Expect some back and intermittent leg aches and pains. 2. You may perform "counter-top" level activities (make a sandwich, sherrell with a project, etc.). 3. No bending or lifting of more than 10 pounds or back twisting of any nature (roll like a log when turning in bed). 4. You may ride in a car for 20-30 minutes at a time. No driving until after your first visit with your doctor. 5. Frequent changes of position and restricting sitting to 30 minutes at a time will help limit the amount of back spasms and stiffness you may experience. 6. You may discontinue the use of ambulatory aids (cane, crutches, etc.) once your strength and confidence allow. 7. You may modeling agent the shower and let water strike your incision when you arrive home at least once daily. Do not take a tub bath, sit in a hot tub or go into a swimming pool until after your first recheck in the office. SPECIAL CARE INSTRUCTIONS: VERY IMPORTANT TO READ AND REVIEW A. Your surgical incision has been closed with a cosmetic suture under the skin that will dissolve in about 6 weeks. In 14 days, you can use a pair of clean scissors and cut the suture that is left outside of the skin at the ends of your incision. 1. The small skin tapes can be removed 7 days after surgery if they have not fallen off by that point. 2. You may keep the wound open to air as much as possible to promote healing after post-op day number 5 unless told otherwise by your doctor. 3. If you think the wound looks like it is becoming infected (redness or worsening drainage) and/or you are experiencing fever, chill or worsening back pain and muscle spasms, contact the office so that we may evaluate you as soon as possible. B. Complications are uncommon, but please contact us if you have any signs or symptoms of: 1. wound infection (fever higher than 102.5 degrees F, redness, separation of wound, drainage, or increasing pain from the incision) 2. blood clots in legs (pain, swelling, redness and warmth in legs) 3. urinary tract infection (fever higher than 102.5 degrees F, burning upon urination or increased frequency of urination) 4. nerve problems (inability to walk on your toes or heels, numbness, loss of bowel or bladder control) 5. any other symptoms that concern you C. Please call the office at if you have any concerns or questions about your operation or recovery. D. No smoking! Smoking drastically decreases the chance of a solid fusion. E. Do not take any anti-inflammatory medications (Indocin, Advil, Motrin, Aspirin, Naprosyn, etc.) as these may inhibit the chance of a solid fusion. Tylenol is okay to take for pain. MANAGING PAIN AFTER SPINAL SURGERY 1. Narcotic medication is intended for short-term use and will be provided for surgical pain. Surgical pain usually lasts for a period of 4-6 weeks. Narcotic medication includes Percocet, Vicodin, Darvocet, Tylenol #3 or Lortab. 2. Longer-term pain is more appropriately treated with non-narcotic medication such as Tylenol ES. 3. Muscle spasm is not appropriately treated with narcotics. Muscle relaxers such as Soma, Flexeril or Skelaxin can be used along with Tylenol ES. 4. Remember that we all live with some "aches and pains". This is not unusual or uncommon after an injury or as we get older. a. Back pain is expected and may include muscle spasms for 4 to 6 weeks after surgery. The pain should gradually improve. If the pain worsens for no apparent reason, please contact the office. b. Intermittent leg pain may also be experienced and should not be concerned about unless it worsens for no apparent reason. If so, please contact the office. 5. We will provide appropriate medication within the normal guidelines of their prescribed use. We will also be very cautious and aware of potential abuse and extended duration of patients' medication needs. a. Pain medications are for your comfort and to assist with sleep and rest so that the tissue can heal. They are not provided in order to return to normal activity and should not be used through the day. To do so or worsening pain at night can result from ongoing tissue damage and development of tolerance to the prescribed medicine. 6. Please allow 2-3 days to process refills. Prescriptions will not be mailed but must be picked up at the office. FOLLOW UP VISIT: Keep your scheduled follow-up appointment. Any questions, please call the office at . Pending Studies at Discharge: No Stand-Alone Forms: My [facility] Applifier, Smoking Cessation Medications and DC Order Prescriptions: New oxycodone 5 mg tablet 5 mg PO Q6H PRN (Reason: pain, severe) Qty: 30 0RF Continued (DME) FreeStyle [place] [facility] [place] See Rx Instructions .ROUTE Rx Instructions: As directed nitroglycerin 0.4 mg tablet, sublingual 0.4 mg sublingual Q5M PRN (Reason: Chest Pain) Rx Instructions: do not exceed 3 doses per episode cyclobenzaprine 10 mg tablet 10 mg PO TID PRN (Reason: muscle spasm) Qty: 60 1RF oxycodone 5 mg tablet 5 mg PO Q6H PRN (Reason: pain) Qty: 60 0RF methylprednisolone [Medrol] 4 mg tablet See Rx Instructions .Route .COMPLEX Qty: 18 0RF Rx Instructions: 1 po bid x 3 days then 1 po am 1/2 po pm x 4 days then 1/2 po bid x 4 days then 1/2 po daily x 4 days then DC; hydralazine 25 mg Tablet 25 mg PO BID clopidogrel [Plavix] 75 mg Tablet 75 mg PO UD Rx Instructions: ordered every morning but currently on hold for surgery fexofenadine 180 mg Tablet 180 mg PO DAILY PRN (Reason: SEASONAL ALLERGIES) glipizide 2.5 mg Tablet Extended Release 24 Hr 5 mg PO QAM pantoprazole 40 mg Tablet,Delayed Release (Dr/Ec) 40 mg PO QAM Label Comments: SOMETIMES DAILY, SOMETIMES EVERY OTHER DAY hydrochlorothiazide 12.5 mg Capsule 12.5 mg PO QAM metoprolol succinate 25 mg Tablet Extended Release 24 Hr 12.5 mg PO QAM fluticasone propionate [Flonase Allergy Relief] 50 mcg/actuation Reading,Suspension 1 spray INTRANASAL DAILY PRN (Reason: SEASONAL ALLERGIES) risperidone 0.5 mg Tablet 0.5 mg PO HS rosuvastatin 40 mg Tablet 40 mg PO QAM aspirin 81 mg Tablet,Delayed Release (Dr/Ec) 81 mg PO UD Rx Instructions: curently on hold for surgery hydrocortisone 2.5 % Cream 1 applic TOPICAL UD PRN (Reason: PSORIASIS ) magnesium oxide 500 mg Capsule 500 mg PO HS cholecalciferol (vitamin D3) [Vitamin D3] 25 mcg (1,000 unit) Tablet,Chewable 25 mcg PO HS Centrum Silver Men 300-600-300 mcg Tablet 1 tab PO QAM ropinirole 0.5 mg tablet 1.5 mg PO HS Rx Instructions: 3 tablet dose metformin 500 mg tablet extended release 24 hr 1,000 mg PO BID Label Comments: 2 AFTER BREAKFAST AND 2 AFTER SUPPER ramipril 10 mg Capsule 10 mg PO BID Discharge Orders: Discharge Order (Routine); Ordered 04/18/22 Ordered By: Quinten Barger Admission Data Admit Date/Time: 04/16/22 06:04 Attending Provider: Quinten Barger Admit Provider: Quinten Barger Primary Care Provider: Jon Crockett Other Providers: Jarrett Be
[2022-04-18] MEDS: MAGNESIUM HYDROXIDE SUSP 30 ML UDC PO PRN (17:15)
== END 2022-04-18 18:24 | disposition home or self-care (01) | DRG 454 ==
LOC: ED 00:45 → EDINP 06:04 → 3E 16:30